=== PATIENT | male | born 1955 | race Caucasian/White ===

== ENCOUNTER 2024-01-11 20:44 | Inpatient (IN) | payer BC, MEDICARE ==
--- NOTE | 2024-01-11 21:52 | XR ---
EXAMINATION TYPE: XR chest 2V DATE OF EXAM: 01/11/2024 COMPARISON: None INDICATION: Chest pain short of breath TECHNIQUE: Frontal and lateral views of the chest are obtained. FINDINGS: The heart size is enlarged. The pulmonary vasculature is prominent. Minimal posterior pleural effusion may be present.. Some minimal infiltrate mainly in the right estiven hilar region. Follow-up is recommended. IMPRESSION: 1. Clinical correlation for mild congestive heart failure versus volume overload. Follow-up is recomm ended.
[2024-01-11 22:05] LABS: Basophils # (A) 0.1 k/uL (0-0.2); Basophils % (A) 1 %; Eosinophils # (A) 0.2 k/uL (0-0.7); Eosinophils % (A) 2 %; HGB 15.1 gm/dL (13.0-17.5); Lymphocytes % (A) 10 %; MCH 26.9 pg (25.0-35.0); MCHC 31.5 g/dL (31.0-37.0); MCV 85.4 fL (80.0-100.0); Mean Platelet Volume 9.4; Monocytes # (A) 0.5 k/uL (0-1.0); Monocytes % (A) 6 %; Neutrophils # (A) 7.9 k/uL (1.3-7.7); Neutrophils % (A) 81 %; Platelet Count 199 k/uL (150-450); RBC 5.62 m/uL (4.30-5.90); RDW 13.9 % (11.5-15.5); WBC 9.8 k/uL (3.8-10.6)
[2024-01-11 22:19] LABS: Partial Thromboplastin Time 22.4 sec (22.0-30.0)
[2024-01-11 22:20] LABS: ALT 114 U/L (4-49); AST 145 U/L (17-59); African American GFR (CKD) >90 (>60 ml/min/1.73 sqM); Albumin 4.5 g/dL (3.5-5.0); Alkaline Phosphatase 58 U/L (38-126); Anion Gap 8 mmol/L; Blood Urea Nitrogen 23 mg/dL (9-20); Calcium 9.1 mg/dL (8.4-10.2); Carbon Dioxide 26 mmol/L (22-30); Chloride 108 mmol/L (98-107); Glucose 124 mg/dL (74-99); Lipase 95 U/L (23-300); Magnesium 2.2 mg/dL (1.6-2.3); Non-African American GFR(CKD) 80 (>60 ml/min/1.73 sqM); Sodium 142 mmol/L (137-145); Total Bilirubin 1.1 mg/dL (0.2-1.3); Total Protein 7.6 g/dL (6.3-8.2)
[2024-01-11 22:28] LABS: NT-Pro-B-Type Natriuretic Pept 4400 pg/mL
[2024-01-11] MEDS ORDERED: NALOXONE 0.4 MG/ML 1 ML VIAL IV PRN (23:38)
--- NOTE | 2024-01-11 23:38 | ED ---
General Adult HPI - General Chief complaint: Recheck/Abnormal Lab/Rx Stated complaint: chest pain,SOB Time Seen by Provider: 01/11/24 20:50 Source: patient, family, EMS Mode of arrival: EMS Limitations: no limitations - History of Present Illness Initial comments: 68-year-old male who presents emergency department with pain and shortness of br eath. Patient admits to having some chest discomfort. Today the patient was watching TV around 6 PM when he had sudden onset of bilateral squeezing arm pain and jaw pain. He took 2 nitro at home that belonged to his . Denies that it helped his chest pain but states it did help his work of breathing. They called EMS after a few hours. EMS did provide him with 4 chewable aspirins and another nitro. Patient arrives and states he is pain-free but does continue to have some shortness of breath. He denies any history of cardiac disease. He denies any medical problems as he does not see a doctor. Denies calf pain or swelling. No history of DVT or PE. No history of congestive heart failure. No other alleviating, precipitating or modifying factors - Related Data Allergies Allergy/AdvReac Type Severity Reaction Status Date / Time No Known Allergies Allergy Verified 01/11/24 20:54 Review of Systems ROS Statement: Those systems with pertinent positive or pertinent negative responses have been documented in the HPI. ROS Other: All systems not noted in ROS Statement are negative. Past Medical History Past Medical History: Asthma, Hypertension Past Surgical History: No Surgical Hx Reported Past Psychological History: No Psychological Hx Reported Smoking Status: Never smoker Past Alcohol Use History: Occasional Past Drug Use History: Marijuana General Exam Limitations: no limitations General appearance: alert Eye exam: Present: normal appearance, PERRL, EOMI. Absent: scleral icterus, conjunctival injection, periorbital swelling ENT exam: Present: normal exam, mucous membranes moist Respiratory exam: Present: rales Cardiovascular Exam: Present: regular rate, tachycardia GI/Abdominal exam: Present: soft, normal bowel sounds. Absent: distended, tenderness, guarding, rebound, rigid Extremities exam: Present: normal inspection, full ROM, normal capillary refill. Absent: tenderness, pedal edema, joint swelling, calf tenderness Course Vital Signs 01/11/24 01/11/24 01/11/24 20:48 22:35 23:35 Temperature 97.9 F Pulse Rate 101 H 86 85 Respiratory 18 18 20 Rate Blood Pressure 200/116 172/100 189/100 O2 Sat by Pulse 95 96 98 Oximetry Medical Decision Making - Medical Decision Making Was pt. sent in by a medical professional or institution ([facility]ANJIT Almonte, CAR SALESPERSON, urgent care, hospital, or longterm...) When possible be specific @ -No Did you speak to anyone other than the patient for history (EMS, parent, family, police, friend...)? What history was obtained from this source @ -I spoke with the patient's significant other for history Did you review nursing and triage notes (agree or disagree)? Why? @ -I reviewed and agree with nursing and triage notes Were old charts reviewed (outside hosp., previous admission, EMS record, old EKG, old radiological studies, urgent care reports/EKG's, longterm records)? Report findings @ -No old charts were reviewed Differential Diagnosis (chest pain, altered mental status, abdominal pain women, abdominal pain men, vaginal bleeding, weakness, fever, dyspnea, syncope, headache, dizziness, GI bleed, back pain, seizure, CVA, palpatations, mental health, musculoskeletal)? @ -Differential Chest Pain: Stable Angina, Unstable Angina, STEMI, NSTEMI Aortic Dissection, Pneumothorax, Musculoskeletal, Esophageal Spasm GERD, Cholecystitis, Pancreatitis, Zoster, this is not meant to be an all-inclusive list. EKG interpreted by me (3pts min.). @ -Yes and demonstrates sinus tachycardia with a rate of 101. OH interval 132. QRS 106. QTc of 409. Q waves in lead II, 3, aVF. No acute ST segment elevations X-rays interpreted by me (1pt min.). @ -Yes and demonstrates pulmonary vascular congestion CT interpreted by me (1pt min.). @ -Yes and demonstrates no signs of PE U/S interpreted by me (1pt. min.). @ -None done What testing was considered but not performed or refused? (CT, X-rays, U/S, labs)? Why? @ -None What meds were considered but not given or refused? Why? @ -None Did you discuss the management of the patient with other professionals (professionals i.e. RANJIT Almonte, CAR SALESPERSON, lab, RT, psych nurse, social security benefits interviewer, marketing development specialist, teacher, chairman and chief executive officer, telephonic nurse case manager)? Give summary @ -I discussed the care with Dr. Mustafa cardiology Was smoking cessation discussed for >3mins.? @ -No Was critical care preformed (if so, how long)? @ -Yes, 35 minutes for diagnosis of NSTEMI. Patient placed on nitro and heparin drip Were there social determinants of health that impacted care today? How? (Homelessness, low income, unemployed, alcoholism, drug addiction, transportation, low edu. Level, literacy, decrease access to med. care, fpc, rehab)? @ -No Was there de-escalation of care discussed even if they declined (Discuss DNR or withdrawal of care, Hospice)? DNR status @ -No What co-morbidities impacted this encounter? (DM, HTN, Smoking, COPD, CAD, Cancer, CVA, ARF, Chemo, Hep., AIDS, mental health diagnosis, sleep apnea, morbid obesity)? @ -None Was patient admitted / discharged? Hospital course, mention meds given and route, prescriptions, significant lab abnormalities, going to OR and other pertinent info. @ -Upon arrival patient seen and evaluated in room 27. Thorough history and physical exam was performed. Patient placed on continuous pulse ox and cardiac monitoring. Twelve-lead EKG is obtained. No acute ST segment elevation however patient does have Q waves in the inferior leads. Patient is markedly hypertensive. Laboratory studies are conducted. Troponin is elevated. D-dimer is elevated therefore CT is performed. No signs of PE however patient appears to be in heart failure from VT. He is initiated on heparin and nitro. He has already received his aspirin. Patient will be given Lasix. Echo ordered for the morning. I spoke with Dr. Frank. Patient has no pain and no ST segment elevation at this time and therefore he will remain n.p.o. for cardiology evaluation in the morning. This information was provided to the patient he was agreeable to admission. He was taken to the floor in stable condition Undiagnosed new problem with uncertain prognosis? @ -No Drug Therapy requiring intensive monitoring for toxicity (Heparin, Nitro, Insulin, Cardizem)? @ -Nitro and heparin Were any procedures done? @ -No Diagnosis/symptom? @ -Acute chest pain, NSTEMI, new onset congestive heart failure Acute, or Chronic, or Acute on Chronic? @ -Acute Uncomplicated (without systemic symptoms) or Complicated (systemic symptoms)? @ -Complicated Side effects of treatment? @ -No Exacerbation, Progression, or Severe Exacerbation? @ -No Poses a threat to life or bodily function? How? (Chest pain, USA, VT, pneumonia, PE, COPD, DKA, ARF, appy, cholecystitis, CVA, Diverticulitis, Homicidal, Suicidal, threat to staff... and all critical care pts) @ -Yes as patient likely had VT leading to heart failure - Lab Data Result diagrams: 01/11/24 21:47 01/11/24 21:47 Lab Results 01/11/24 01/11/24 01/11/24 Range/Units 21:47 21:47 21:47 WBC 9.8 (3.8-10.6) k/uL RBC 5.62 (4.30-5.90) m/uL Hgb 15.1 (13.0-17.5) gm/dL Hct 48.0 (39.0-53.0) % MCV 85.4 (80.0-100.0) fL MCH 26.9 (25.0-35.0) pg MCHC 31.5 (31.0-37.0) g/dL RDW 13.9 (11.5-15.5) % Plt Count 199 (150-450) k/uL MPV 9.4 Neutrophils % 81 % Lymphocytes % 10 % Monocytes % 6 % Eosinophils % 2 % Basophils % 1 % Neutrophils # 7.9 H (1.3-7.7) k/uL Lymphocytes # 1.0 (1.0-4.8) k/uL Monocytes # 0.5 (0-1.0) k/uL Eosinophils # 0.2 (0-0.7) k/uL Basophils # 0.1 (0-0.2) k/uL PT 11.0 (10.0-12.5) sec INR 1.0 (<1.2) APTT 22.4 (22.0-30.0) sec D-Dimer (<0.60) mg/L FEU Sodium 142 (137-145) mmol/L Potassium 4.0 (3.5-5.1) mmol/L Chloride 108 H (98-107) mmol/L Carbon Dioxide 26 (22-30) mmol/L Anion Gap 8 mmol/L BUN 23 H (9-20) mg/dL Creatinine 0.97 (0.66-1.25) mg/dL Est GFR (CKD-EPI)AfAm >90 (>60 ml/min/1.73 sqM) Est GFR (CKD-EPI)NonAf 80 (>60 ml/min/1.73 sqM) Glucose 124 H (74-99) mg/dL Calcium 9.1 (8.4-10.2) mg/dL Magnesium 2.2 (1.6-2.3) mg/dL Total Bilirubin 1.1 (0.2-1.3) mg/dL AST 145 H (17-59) U/L ALT 114 H (4-49) U/L Alkaline Phosphatase 58 (38-126) U/L Troponin I (0.000-0.034) ng/mL NT-Pro-B Natriuret Pep 4400 pg/mL Total Protein 7.6 (6.3-8.2) g/dL Albumin 4.5 (3.5-5.0) g/dL Lipase 95 (23-300) U/L 01/11/24 01/11/24 Range/Units 21:47 21:47 WBC (3.8-10.6) k/uL RBC (4.30-5.90) m/uL Hgb (13.0-17.5) gm/dL Hct (39.0-53.0) % MCV (80.0-100.0) fL MCH (25.0-35.0) pg MCHC (31.0-37.0) g/dL RDW (11.5-15.5) % Plt Count (150-450) k/uL MPV Neutrophils % % Lymphocytes % % Monocytes % % Eosinophils % % Basophils % % Neutrophils # (1.3-7.7) k/uL Lymphocytes # (1.0-4.8) k/uL Monocytes # (0-1.0) k/uL Eosinophils # (0-0.7) k/uL Basophils # (0-0.2) k/uL PT (10.0-12.5) sec INR (<1.2) APTT (22.0-30.0) sec D-Dimer 0.86 H (<0.60) mg/L FEU Sodium (137-145) mmol/L Potassium (3.5-5.1) mmol/L Chloride (98-107) mmol/L Carbon Dioxide (22-30) mmol/L Anion Gap mmol/L BUN (9-20) mg/dL Creatinine (0.66-1.25) mg/dL Est GFR (CKD-EPI)AfAm (>60 ml/min/1.73 sqM) Est GFR (CKD-EPI)NonAf (>60 ml/min/1.73 sqM) Glucose (74-99) mg/dL Calcium (8.4-10.2) mg/dL Magnesium (1.6-2.3) mg/dL Total Bilirubin (0.2-1.3) mg/dL AST (17-59) U/L ALT (4-49) U/L Alkaline Phosphatase (38-126) U/L Troponin I 0.635 H* (0.000-0.034) ng/mL NT-Pro-B Natriuret Pep pg/mL Total Protein (6.3-8.2) g/dL Albumin (3.5-5.0) g/dL Lipase (23-300) U/L Disposition Clinical Impression: Chest pain, NSTEMI (non-ST elevated myocardial infarction), Hypertension Disposition: ADMITTED IP TO THIS HOSP Condition: Serious Is patient prescribed a controlled substance at d/c from ED?: No Time of Disposition: 23:38 Decision to Admit Reason: Admit from EC Decision Date: 01/11/24 Decision Time: 23:38
[2024-01-12] MEDS: HEPARIN SODIUM 1,000 UN/ML (10ML VL) IV ONE (00:24)
[2024-01-12] MEDS: FUROSEMIDE 10 MG/ML 4 ML VIAL IV STA ×2 (00:24→03:21)
[2024-01-12] MEDS: HEPARIN SOD,PORK IN 0.45% NACL 25,000 UNIT in 0.45% NACL 1 250ML.BAG IV SCH (00:25)
[2024-01-12] MEDS: NITROGLYCERIN-D5W PMX 50 MG in DEXTROSE/WATER 1 250ML.BAG IV SCH (00:50)
--- NOTE | 2024-01-12 01:02 | CT ---
EXAM: CT Angiography Chest With Intravenous Contrast CLINICAL HISTORY: ITS.REASON CT Reason: elevated d-dimer, tachycardia, heart failure TECHNIQUE: Axial computed tomographic angiography images of the chest with intravenous contrast. CTDI is 20.3 mGy and DLP is 473 mGy-cm. This CT exam was performed using one or more of the following dose reduction techniques: automated exposure control, adjustment of the mA and/or kV according to patient size, and/or use of iterative reconstruction technique. MIP reconstructed images were created and reviewed. COMPARISON: No relevant prior studies available. FINDINGS: Pulmonary arteries: Unremarkable. No pulmonary embolism. Aorta: No acute findings. No thoracic aortic aneurysm. Lungs: Unremarkable. No mass. No consolidation. Pleural space: Pulmonary-congestion and small bilateral pleural effusions. Cardiomegaly. Findings are concerning for congestive heart failure. No pneumothorax. Heart: Cardiomegaly. Bones/joints: No acute fracture. No dislocation. Soft tissues: Unremarkable. Lymph nodes: Unremarkable. No enlarged lymph nodes. Liver: Hepatic steatosis. IMPRESSION: Pulmonary-congestion and small bilateral pleural effusions. Cardiomegaly. Findings are concerning for congestive heart failure. No acute pulmonary embolism.
[2024-01-12] MEDS: ATORVASTATIN 80 MG TAB PO STA ×2 (03:21→09:46)
[2024-01-12] MEDS: NITROGLYCERIN OINT 1 INCH/GM PACKET TOPICAL SCH (03:21)
[2024-01-12] MEDS: carvediloL 6.25 MG TAB PO STA (03:21)
[2024-01-12] MEDS: VALSARTAN 160 MG TAB PO STA (04:23)
[2024-01-12 05:44] LABS: African American GFR (CKD) >90 (>60 ml/min/1.73 sqM); Anion Gap 8 mmol/L; Blood Urea Nitrogen 19 mg/dL (9-20); Calcium 9.1 mg/dL (8.4-10.2); Carbon Dioxide 27 mmol/L (22-30); Chloride 106 mmol/L (98-107); Glucose 116 mg/dL (74-99); Non-African American GFR(CKD) 80 (>60 ml/min/1.73 sqM); Potassium 3.8 mmol/L (3.5-5.1); Sodium 141 mmol/L (137-145)
[2024-01-12 05:46] LABS: Basophils # (A) 0.1 k/uL (0-0.2); Basophils % (A) 1 %; Eosinophils # (A) 0.2 k/uL (0-0.7); Eosinophils % (A) 1 %; HCT 47.5 % (39.0-53.0); HGB 15.5 gm/dL (13.0-17.5); Lymphocytes # (A) 1.1 k/uL (1.0-4.8); Lymphocytes % (A) 10 %; MCH 27.8 pg (25.0-35.0); MCHC 32.7 g/dL (31.0-37.0); MCV 85.2 fL (80.0-100.0); Monocytes # (A) 0.8 k/uL (0-1.0); Monocytes % (A) 7 %; Neutrophils # (A) 9.2 k/uL (1.3-7.7); Neutrophils % (A) 81 %; Platelet Count 199 k/uL (150-450); RBC 5.57 m/uL (4.30-5.90); RDW 13.9 % (11.5-15.5); WBC 11.5 k/uL (3.8-10.6)
[2024-01-12 05:49] LABS: Partial Thromboplastin Time 32.3 sec (22.0-30.0); Prothrombin Time 11.3 sec (10.0-12.5)
[2024-01-12] MEDS: HEPARIN SODIUM 1,000 UN/ML (10ML VL) IV PRN (05:57)
--- NOTE | 2024-01-12 07:29 | P.HPCAR ---
History of Present Illness This is Dr. Mustafa dictating a consult on this patient The patient was interviewed and examined IMPRESSION / ASSESSMENT: Hypertensive emergency with heart failure symptoms and anginal-like symptoms Acute myocardial injury with rising troponin pattern, symptoms consistent with acute coronary syndrome Congestive heart failure acute Twelve-lead EKG, serial does not show any obvious clear-cut ST segment deviation other than very subtle changes. Q waves noted in V3 and V4 as well as in the inferior leads in the lateral precordial leads, LVH noted PLAN: Continue carvedilol 6.25 mg twice daily Continue valsartan 160 mg twice daily IV Lasix 40 mg daily Baby aspirin, atorvastatin 80 mg p.o. daily Continue IV heparin for now Cardiac catheterization within the next 12 to 24 hours to evaluate epicardial coronary arteries 2D echo and Doppler study to evaluate LV function in the setting of non-Q wave MT and acute congestive heart failure Hemoglobin A1c Lipid panel Follow-up with Dr. Mustafa post discharge HPI Patient presented with fairly sudden onset of discomfort in both armpits and the inner arms as well as discomfort along the sides of the neck. He was diaphoretic according to his and then became very short of breath In the ER he was extremely short of breath and even when trying to walk to the bathroom his found him extremely short of breath His blood pressure was very high upon admission, 222/138 and subsequently greater than 200/100 mmHg He was treated for heart failure with 5 mcg/min of IV nitroglycerin in the ER along with 40 of Lasix IV His blood pressure remained 182/102 mmHg Subsequently I treated him with carvedilol 6.25 mg twice daily, valsartan 160 twice daily, and additional dose of IV Lasix 40 mg, discontinued the low-dose nitroglycerin and put on a Nitropaste instead Aspirin and atorvastatin 80 mg p.o. daily His blood pressure this morning is 156/85 mmHg. He looks very comfortable he has no chest discomfort no shortness of breath no orthopnea. He has been able to lay flat following that treatment He has not seen a doctor ever. He carries no medical diagnosis. From time to time he has experienced sudden onset of shortness of breath but no anginal-like symptoms but thought it was his asthma He denies smoking cigarettes He does consume a few alcoholic beverages over the weekend He denies any recent viral illness in the last 3 months ROS: No fever chills or rigors, no cough, phlegm or expectoration, no nausea, vomiting or diarrhea, no hematuria, dysuria, no musculoskeletal complaints, no strokes or seizures, no skin lesions. EXAMINATION: Blood pressure is above 200/110 mmHg on admission that was treated with 5 mcg of IV nitroglycerin No JVD Normal heart sounds no murmurs Reduced breath sounds bilaterally no rhonchi no crackles Abdomen soft No lower extremity edema No orthopnea, patient is lying flat in bed with much improved blood pressures but still elevated REVIEW OF LABS, ECG & MEDICAL DATA White count 9.8 thousand, hemoglobin 15, D-dimer 0.86 Sodium 142, potassium 4.0 BUN 23 and creatinine 0.97 Elevated glucose Rising troponin pattern of 0.6, 3.3 and 17.7 NT proBNP 4400 Physical Exam Vitals: Vital Signs Temp Pulse Pulse Resp BP BP Pulse Ox 01/12/24 05:59 72 16 156/85 100 01/12/24 03:31 98.4 F 89 19 189/103 98 01/12/24 01:27 96 18 182/102 95 01/12/24 00:30 97.8 F 105 H 18 222/138 96 01/12/24 00:05 98.2 F 85 20 184/124 96 01/11/24 23:35 85 20 189/100 98 01/11/24 22:35 86 18 172/100 96 01/11/24 20:48 97.9 F 101 H 18 200/116 95 Intake and Output 01/11/24 01/12/24 01/12/24 22:59 06:59 14:59 Intake Total 54.833 Output Total 2350 Balance -2295.167 Intake: Intake, IV Titration 54.833 Amount Heparin Sod,Pork in 0.45% 54.833 NaCl 25,000 unit In 0.45 % NaCl 1 250ml.bag @ 10. 498 UNITS/KG/HR 10 mls/hr IV .Q24H [facility] Rx#: [id number] Output: Urine 2350 Other: Voiding Method Urinal # Voids 1 Weight 95.254 kg 89.6 kg Past Medical History Past Medical History: Asthma, Hypertension History of Any Multi-Drug Resistant Organisms: None Reported Past Surgical History: No Surgical Hx Reported Past Anesthesia/Blood Transfusion Reactions: No Reported Reaction Past Psychological History: No Psychological Hx Reported Smoking Status: Never smoker Past Alcohol Use History: Occasional Past Drug Use History: Marijuana Physical Examination Vital Signs Temp Pulse Pulse Resp BP BP Pulse Ox 01/12/24 05:59 72 16 156/85 100 01/12/24 03:31 98.4 F 89 19 189/103 98 01/12/24 01:27 96 18 182/102 95 01/12/24 00:30 97.8 F 105 H 18 222/138 96 01/12/24 00:05 98.2 F 85 20 184/124 96 01/11/24 23:35 85 20 189/100 98 01/11/24 22:35 86 18 172/100 96 01/11/24 20:48 97.9 F 101 H 18 200/116 95 Intake and Output 01/11/24 01/12/24 01/12/24 22:59 06:59 14:59 Intake Total 54.833 Output Total 2350 Balance -2295.167 Intake: Intake, IV Titration 54.833 Amount Heparin Sod,Pork in 0.45% 54.833 NaCl 25,000 unit In 0.45 % NaCl 1 250ml.bag @ 10. 498 UNITS/KG/HR 10 mls/hr IV .Q24H [facility] Rx#: [id number] Output: Urine 2350 Other: Voiding Method Urinal # Voids 1 Weight 95.254 kg 89.6 kg Results 01/12/24 04:31 01/12/24 04:31 Cardiac Enzymes 01/11/24 01/11/24 01/12/24 Range/Units 21:47 21:47 00:15 AST 145 H (17-59) U/L Troponin I 0.635 H* 3.250 H* (0.000-0.034) ng/mL 01/12/24 Range/Units 04:31 AST (17-59) U/L Troponin I 17.700 H* (0.000-0.034) ng/mL Coagulation 01/11/24 01/12/24 Range/Units 21:47 04:31 PT 11.0 11.3 (10.0-12.5) sec APTT 22.4 32.3 H (22.0-30.0) sec CBC 01/11/24 01/12/24 Range/Units 21:47 04:31 WBC 9.8 11.5 H (3.8-10.6) k/uL RBC 5.62 5.57 (4.30-5.90) m/uL Hgb 15.1 15.5 (13.0-17.5) gm/dL Hct 48.0 47.5 (39.0-53.0) % Plt Count 199 199 (150-450) k/uL Comprehensive Metabolic Panel 01/11/24 01/12/24 Range/Units 21:47 04:31 Sodium 142 141 (137-145) mmol/L Potassium 4.0 3.8 (3.5-5.1) mmol/L Chloride 108 H 106 (98-107) mmol/L Carbon Dioxide 26 27 (22-30) mmol/L BUN 23 H 19 (9-20) mg/dL Creatinine 0.97 0.97 (0.66-1.25) mg/dL Glucose 124 H 116 H (74-99) mg/dL Calcium 9.1 9.1 (8.4-10.2) mg/dL AST 145 H (17-59) U/L ALT 114 H (4-49) U/L Alkaline Phosphatase 58 (38-126) U/L Total Protein 7.6 (6.3-8.2) g/dL Albumin 4.5 (3.5-5.0) g/dL Current Medications Generic Name Dose Route Start Last Admin Trade Name Freq PRN Reason Stop Dose Admin Aspirin 81 mg 01/12/24 09:00 Aspirin 81 Mg PO DAILY [facility] Atorvastatin Calcium 80 mg 01/12/24 09:00 Atorvastatin 80 Mg Tab PO DAILY [facility] Carvedilol 6.25 mg 01/12/24 07:30 Carvedilol 6.25 Mg Tab PO BID-W/MEALS [facility] Furosemide 40 mg 01/12/24 09:00 Furosemide 10 Mg/Ml 4 Ml Vial IV Q12HR [facility] Heparin Sodium (Porcine) 0 unit 01/11/24 23:37 01/12/24 05:57 Heparin Sodium 1,000 Un/Ml (10ml Vl) IV 4,000 unit PER PROTOCOL PRN Administration Low PTT Protocol Heparin Sodium/Sodium Chloride 250 mls @ 10 mls/hr 01/11/24 23:45 01/12/24 05:54 25,000 unit/ Sodium Chloride IV 13.49 units/kg/hr .Q24H [facility] 12.85 mls/hr Titration Protocol 10.498 UNITS/KG/HR Naloxone HCl 0.2 mg 01/11/24 23:38 Naloxone 0.4 Mg/Ml 1 Ml Vial IV Q2M PRN Opioid Reversal Nitroglycerin 1 inch 01/12/24 03:15 01/12/24 03:21 Nitroglycerin Oint 1 Inch/Gm Packet TOPICAL 1 inch Q6HR [facility] Administration Valsartan 160 mg 01/12/24 09:00 Valsartan 160 Mg Tab PO BID [facility] Intake and Output 01/11/24 01/12/24 01/12/24 22:59 06:59 14:59 Intake Total 54.833 Output Total 2350 Balance -2295.167 Intake: Intake, IV Titration 54.833 Amount Heparin Sod,Pork in 0.45% 54.833 NaCl 25,000 unit In 0.45 % NaCl 1 250ml.bag @ 10. 498 UNITS/KG/HR 10 mls/hr IV .Q24H [facility] Rx#: [id number] Output: Urine 2350 Other: Voiding Method Urinal # Voids 1 Weight 95.254 kg 89.6 kg 01/12/24 04:31 01/12/24 04:31
[2024-01-12] MEDS ORDERED: FUROSEMIDE 10 MG/ML 4 ML VIAL IV SCH (09:00)
[2024-01-12] MEDS: carvediloL 6.25 MG TAB PO SCH (09:03)
[2024-01-12] MEDS ORDERED: ALPRAZolam 0.5 MG TAB PO PRN (09:19)
[2024-01-12] MEDS ORDERED: NITROGLYCERIN SL TABS 0.4 MG TAB SUBLINGUAL PRN (09:19)
[2024-01-12] MEDS ORDERED: ALPRAZolam 0.25 MG TAB PO PRN (09:19)
[2024-01-12] MEDS: ASPIRIN 325 MG TAB PO STA ×2 (09:36→09:46)
[2024-01-12] MEDS: ATORVASTATIN 80 MG TAB PO SCH (09:37)
[2024-01-12] MEDS ORDERED: fentaNYL (PF) 50 MCG/ML 2 ML AMP ONE (09:56)
[2024-01-12] MEDS ORDERED: HEPARIN SODIUM 1,000 UN/ML (10ML VL) ONE (10:00)
[2024-01-12] MEDS: fentaNYL (PF) 50 MCG/ML 2 ML AMP IVP ONE (10:04)
[2024-01-12] MEDS: MIDAZOLAM 2 MG/2 ML VIAL IVP ONE (10:04)
[2024-01-12] MEDS: LIDOCAINE 1% INJ 10MG/ML (20 ML MDV) SQ ONE ×2 (10:06→10:07)
[2024-01-12] MEDS: VERAPAMIL SYRINGE (5 MG/10 ML) INTRAARTER ONE (10:12)
[2024-01-12] MEDS: HEPARIN SODIUM 1,000 UN/ML (10ML VL) IVP ONE (10:17)
[2024-01-12 10:31] LABS: Chol/HDL Ratio 4.82 Ratio; LDL Cholesterol,Calculated 152.6 mg/dL (0.0-131.0); VLDL Calculation 13.04 mg/dL (5.00-40.00)
[2024-01-12] MEDS: ASPIRIN 81 MG PO SCH (10:35)
[2024-01-12] MEDS: IOPAMIDOL-370 100ML BTL INJ ONE (10:37)
[2024-01-12] MEDS: SODIUM CHLORIDE 0.9% 1,000 ML IV ONE (10:38)
[2024-01-12] MEDS ORDERED: RX INFO: IV CONTRAST WAS GIVEN 1 EACH MISC MISCELLANE PRN (11:03)
[2024-01-12] MEDS: VALSARTAN 160 MG TAB PO SCH (11:09)
[2024-01-12] MEDS: SODIUM CHLORIDE 0.9% 1,000 ML in EMPTY BAG 1 BAG IV SCH (11:14)
--- NOTE | 2024-01-12 11:18 | CC ---
CARDIAC CATHETERIZATION REPORT INDICATIONS: Acute xfn-FD-oaxsgyd elevation WI. PROCEDURE NOTE: After obtaining informed consent, left heart catheterization and coronary angiogram were performed via right radial artery using standard [place] catheters. The patient tolerated the procedure well without any obvious immediate complications. A TR band will be used for hemostasis. The patient received moderate conscious sedation. Total sedation time was 20 minutes. I obtained right radial artery access using Seldinger technique, 6-Ukrainian sheath was placed. Catheters and wires were floated into the ascending aorta under fluoroscopic guidance. The patient received verapamil and heparin per protocol. FINDINGS: 1. Hemodynamics: Left ventricular end-diastolic pressure 18 to 20 mm. There is no significant gradient across the aortic valve. 2. Left Ventriculogram: Left ventriculogram is not performed. 3. Angiographic Data: a.Right Coronary Artery: Right coronary artery is a large dominant vessel that shows an 80% to 90% mid right coronary artery stenosis. Left main coronary artery appears calcified but is free of significant stenosis. Divides into left anterior descending coronary artery and circumflex coronary artery. LAD shows a long segment of narrowing and it is extending in its midportion. Diagonal branch has an 80% to 90% stenosis. Circumflex coronary artery is a nondominant vessel and a large caliber OM branch is totally occluded. Severe three-vessel coronary artery disease as described above. PLAN: I reviewed angiographic data with Dr. Faust who felt that surgical revascularization is the best option for the patient. Consult Dr. Oliveros. I spoke to the patient's who is a nurse and she is going to think about it, talk it out with her and make a decision. MMODL / IJN: [id number] /
--- NOTE | 2024-01-12 14:35 | P.GSCN ---
History of Present Illness Consult date: 01/12/24 Reason for Consult: Multivessel coronary artery disease, and acute non-ST elevated myocardial infarction this admission Requesting physician: Ronnie Oconnor History of present illness: This is a 68-year-old gentleman who does not follow with a primary care provider on an outpatient basis. He has a past medical history significant for asthma and is a lifetime non-smoker. The patient presented to the emergency department here at [facility] on January 11, 2024 with complaints of acute onset of pain to his bilateral upper extremities and to his bilateral armpits, associated with shortness of breath and he became diaphoretic. The patient states that he was sitting on the couch watching TV when the pain came on all of a sudden. He states that he is very active and does the elliptical around 4 ti mes a week for 45 minutes each episode. He denies any recent fever, chills, nausea, vomiting, constipation, diarrhea, hematemesis, hemoptysis, visual disturbances, palpitations, chest pain/pressure, presyncope or syncope. The patient reports that he took 1 one of his 's nitroglycerin without relief and then decided to present to the emergency department for further evaluation and treatment recommendations. A twelve-lead EKG was completed which showed some subtle changes, Q waves noted in V3 and V4 as well as his inferior leads in the lateral precordial leads. Initial laboratory results showed a WBC count of 9.8, hemoglobin 15.1, hematocrit 48.0, platelets 199, PT 11.0, INR 1.0, PTT 2 4.4, D-dimer 0.86, sodium 142, potassium 4.0, chloride 108, BUN 23, creatinine 0.97, glucose 124, calcium 9.1, magnesium 2.2, AST 145, ALT 114, proBNP 4400, and serial troponins were positive and as high as 17.700. Subsequently due to the patient's presenting symptoms and elevated troponins a consult was placed to cardiology. Dr. Oconnor from cardiology assessed the patient and recommended a cardiac catheterization which was completed today. The cardiac catheterization revealed severe three-vessel coronary artery disease with a long segment of narrowing to his LAD extending to its midportion, and 80 to 90% stenosis to his diagonal branch coronary artery, a totally occluded obtuse marginal branch, and an 80 to 90% stenosis to his mid right coronary artery. A transthoracic 2D echocardiogram is pending. Due to the findings on a cardiac catheterization a consult was placed to cardiothoracic surgery for further evaluation and treatment recommendations including myocardial vascularization surgery. Review of Systems A review of systems was completed and was negative except as mentioned in the HPI. Past Medical History Past Medical History: Asthma History of Any Multi-Drug Resistant Organisms: None Reported Past Surgical History: No Surgical Hx Reported Past Anesthesia/Blood Transfusion Reactions: No Reported Reaction Past Psychological History: No Psychological Hx Reported Smoking Status: Never smoker Past Alcohol Use History: Occasional Past Drug Use History: Marijuana - Past Family History Mother Additional Family Medical History / Comment(s): Osteoporosis Father Family Medical History: Coronary Artery Disease (CAD) Medications and Allergies Home Medications Medication Instructions Recorded Confirmed Type No Known Home Medications 01/12/24 01/12/24 History Allergies Allergy/AdvReac Type Severity Reaction Status Date / Time No Known Allergies Allergy Verified 01/12/24 08:48 Surgical - Exam Vital Signs Temp Pulse Resp BP Pulse Ox 97.9 F 101 H 18 200/116 95 01/11/24 20:48 01/11/24 20:48 01/11/24 20:48 01/11/24 20:48 01/11/24 20:48 - General well developed, well nourished, no distress, no pain, obese - Eyes PERRL, normal ocular movement, no pale, no icteric - ENT normal pinna, normal nares, normal mucosa, no hearing loss, no congestion - Neck Neck is supple, no lymphadenopathy. no masses, no bruits, trachea midline, no venous distension - Respiratory Lung sounds essentially clear throughout. Respirations are symmetrical and nonlabored. No wheezes, rhonchi or crackles. - Cardiovascular Regular rhythm and rate. S1 and S2 present, negative for S3, gallop or murmur. No peripheral edema present. - Abdomen Abdomen is soft, nontender and nondistended. Active bowel sounds present all 4 abdominal quadrants. No guarding or rigidity. No organomegaly appreciated. - Genitourinary Deferred - Rectum Deferred - Integumentary Skin is warm and dry. No clubbing or cyanosis is present. no rash, no growths, no abnormal pigmentation - Neurologic No focal deficits. - Musculoskeletal Moves all 4 extremities with equal strength bilateral. - Psychiatric oriented to time, oriented to person, oriented to place, speech is normal, memory intact Results - Labs 01/12/24 04:31 01/12/24 04:31 Abnormal Lab Results - Last 24 Hours (Table) 01/11/24 01/11/24 01/11/24 Range/Units 21:47 21:47 21:47 WBC (3.8-10.6) k/uL Neutrophils # 7.9 H (1.3-7.7) k/uL APTT (22.0-30.0) sec D-Dimer (<0.60) mg/L FEU Chloride 108 H (98-107) mmol/L BUN 23 H (9-20) mg/dL Glucose 124 H (74-99) mg/dL AST 145 H (17-59) U/L ALT 114 H (4-49) U/L Troponin I 0.635 H* (0.000-0.034) ng/mL Cholesterol (0.00-200.00) mg/dL LDL Cholesterol, Calc (0.0-131.0) mg/dL 01/11/24 01/12/24 01/12/24 Range/Units 21:47 00:15 04:31 WBC 11.5 H (3.8-10.6) k/uL Neutrophils # 9.2 H (1.3-7.7) k/uL APTT (22.0-30.0) sec D-Dimer 0.86 H (<0.60) mg/L FEU Chloride (98-107) mmol/L BUN (9-20) mg/dL Glucose (74-99) mg/dL AST (17-59) U/L ALT (4-49) U/L Troponin I 3.250 H* (0.000-0.034) ng/mL Cholesterol (0.00-200.00) mg/dL LDL Cholesterol, Calc (0.0-131.0) mg/dL 01/12/24 01/12/24 01/12/24 Range/Units 04:31 04:31 04:31 WBC (3.8-10.6) k/uL Neutrophils # (1.3-7.7) k/uL APTT 32.3 H (22.0-30.0) sec D-Dimer (<0.60) mg/L FEU Chloride (98-107) mmol/L BUN (9-20) mg/dL Glucose 116 H (74-99) mg/dL AST (17-59) U/L ALT (4-49) U/L Troponin I 17.700 H* (0.000-0.034) ng/mL Cholesterol (0.00-200.00) mg/dL LDL Cholesterol, Calc (0.0-131.0) mg/dL 01/12/24 Range/Units 04:31 WBC (3.8-10.6) k/uL Neutrophils # (1.3-7.7) k/uL APTT (22.0-30.0) sec D-Dimer (<0.60) mg/L FEU Chloride (98-107) mmol/L BUN (9-20) mg/dL Glucose (74-99) mg/dL AST (17-59) U/L ALT (4-49) U/L Troponin I (0.000-0.034) ng/mL Cholesterol 209.00 H (0.00-200.00) mg/dL LDL Cholesterol, Calc 152.6 H (0.0-131.0) mg/dL Diabetes panel 01/11/24 01/12/24 01/12/24 Range/Units 21:47 04:31 04:31 Sodium 142 141 (137-145) mmol/L Potassium 4.0 3.8 (3.5-5.1) mmol/L Chloride 108 H 106 (98-107) mmol/L Carbon Dioxide 26 27 (22-30) mmol/L BUN 23 H 19 (9-20) mg/dL Creatinine 0.97 0.97 (0.66-1.25) mg/dL Glucose 124 H 116 H (74-99) mg/dL Hemoglobin A1c 5.8 (<=6.0) % Calcium 9.1 9.1 (8.4-10.2) mg/dL AST 145 H (17-59) U/L ALT 114 H (4-49) U/L Alkaline Phosphatase 58 (38-126) U/L Total Protein 7.6 (6.3-8.2) g/dL Albumin 4.5 (3.5-5.0) g/dL Triglycerides (0.00-149.00) mg/dL HDL Cholesterol (40.00-60.00) mg/dL 01/12/24 Range/Units 04:31 Sodium (137-145) mmol/L Potassium (3.5-5.1) mmol/L Chloride (98-107) mmol/L Carbon Dioxide (22-30) mmol/L BUN (9-20) mg/dL Creatinine (0.66-1.25) mg/dL Glucose (74-99) mg/dL Hemoglobin A1c (<=6.0) % Calcium (8.4-10.2) mg/dL AST (17-59) U/L ALT (4-49) U/L Alkaline Phosphatase (38-126) U/L Total Protein (6.3-8.2) g/dL Albumin (3.5-5.0) g/dL Triglycerides 65.20 (0.00-149.00) mg/dL HDL Cholesterol 43.40 (40.00-60.00) mg/dL Calcium panel 01/11/24 01/12/24 Range/Units 21:47 04:31 Calcium 9.1 9.1 (8.4-10.2) mg/dL Albumin 4.5 (3.5-5.0) g/dL Pituitary panel 01/11/24 01/12/24 Range/Units 21:47 04:31 Sodium 142 141 (137-145) mmol/L Potassium 4.0 3.8 (3.5-5.1) mmol/L Chloride 108 H 106 (98-107) mmol/L Carbon Dioxide 26 27 (22-30) mmol/L BUN 23 H 19 (9-20) mg/dL Creatinine 0.97 0.97 (0.66-1.25) mg/dL Glucose 124 H 116 H (74-99) mg/dL Calcium 9.1 9.1 (8.4-10.2) mg/dL Adrenal panel 01/11/24 01/12/24 Range/Units 21:47 04:31 Sodium 142 141 (137-145) mmol/L Potassium 4.0 3.8 (3.5-5.1) mmol/L Chloride 108 H 106 (98-107) mmol/L Carbon Dioxide 26 27 (22-30) mmol/L BUN 23 H 19 (9-20) mg/dL Creatinine 0.97 0.97 (0.66-1.25) mg/dL Glucose 124 H 116 H (74-99) mg/dL Calcium 9.1 9.1 (8.4-10.2) mg/dL Total Bilirubin 1.1 (0.2-1.3) mg/dL AST 145 H (17-59) U/L ALT 114 H (4-49) U/L Alkaline Phosphatase 58 (38-126) U/L Total Protein 7.6 (6.3-8.2) g/dL Albumin 4.5 (3.5-5.0) g/dL - Imaging CT scan - chest: report reviewed Additional studies: Cardiac catheterization films were reviewed by Dr. Julia Correa. Assessment and Plan Assessment: Multivessel coronary artery disease Non-ST elevated myocardial infarction this admission Congestive heart failure Hypertension Hyperlipidemia, cholesterol 209, LDL 152.6 History of asthma Lifetime non-smoker Family history of coronary artery disease Plan: The patient was seen and examined in conjunction with Dr. Julia Correa from cardiothoracic surgery. The patient has several family members including his present at his bedside. The patient's chart and diagnostics were reviewed. Dr. Correa discussed with the patient and his family present at his bedside the findings on the cardiac catheterization, treatment options were discussed including myocardial vascularization surgery. The usual perioperative course of open-heart surgery was discussed in detail with the patient, risks and benefits were reviewed, all questions were answered. Preoperative teaching and preoperative testing has been initiated. A clinical frailty score has been completed, clinical frailty score shows 1 which indicates very fit, mild/frailty. Once the patient is able to ambulate a 5 m walk test will be completed with the patient. At this time the patient and his family members are discussing requesting a transfer to [facility] for undergoing myocardial vascularization surgery. The patient's has discussed this with internal medicine. Medical management and other comorbidities per primary care and cardiology service. Continue to maximize medical management with aspirin, statin and beta-dima. More recommendations to follow based on patient's clinical course, and a has his preoperative testing has been completed and reviewed. Once his preoperative testing has been completed and obtained an STS risk or will be calculated and discussed with the patient. Thank you Dr. Oconnor for this consult and we look forward to working with you in the care of this patient. I have personally seen and examined the patient, performed the documentation and the assessment and plan as written. Number of minutes spent on the visit: 30. JOSE RAFAEL AntunezC
--- NOTE | 2024-01-12 15:39 | US ---
EXAMINATION TYPE: US vein mapping BILAT DATE OF EXAM: 01/12/2024 2:32 PM COMPARISON: NONE CLINICAL INDICATION: Male, 68 years old with history of PreOp Cardiac Surgery; SIDE PERFORMED: TECHNIQUE: Lower extremity saphenous vein is examined and measured utilizing real time linear array sonography. Patient History: Smoker: N/A Heart Disease: Yes Previous DVT: No Vascular Surgery: No Discoloration: Yes Hypertension: No Diabetes: N/A Paralysis: No Varicosities: No Edema: No DUPLEX FINDINGS: Greater Saphenous: Color flow seen Lesser Saphenous: Color flow seen Measurements in mm: Right Greater Saphenous: Groin: 4.0 x 3.6 mm High Thigh: 3.6 x 2.8 mm Mid Thigh: 4.0 x 3.2 mm Above Knee: 2.5 x 2.5 mm Knee: 2.9 x 2.9 mm Below Knee: 2.5 x 2.2 mm Mid Calf: 2.8 x 2.7 mm At Ankle: 2.3 x 2.4 mm Left Greater Saphenous: Groin: 6.2 x 5.1 mm High Thigh: 4.4 x 3.9 mm Mid Thigh: 4.3 x 3.8 mm Above Knee: 3.8 x 3.5 mm Knee: 4.1 x 3.9 mm Below Knee: 4.2 x 4.0 mm Mid Calf: 3.3 x 2.8 mm At Ankle: 4.0 x 2.9 mm IMPRESSION: 1. Bilateral GSV measurements listed above. 2. Performing surgeon to determine viability as conduit.
--- NOTE | 2024-01-12 15:41 | US ---
EXAMINATION TYPE: Pre-Operative Non-Invasive Evaluation of the hand for Potential Radial Artery Sanjiv , Measurements only DATE OF EXAM: 01/12/2024 2:32 PM CLINICAL INDICATION: Male, 68 years old with history of Pre-Op Cardiac Surgery; PreOP SIDE PERFORMED: Left TECHNIQUE: Radial artery is measured utilizing real time linear array sonography. Dominant hand: Right Duplex Findings: Radial Artery: Color flow seen Measurements in mm, transverse view: Left Radial: Proximal: 3.5 x 3.3 mm Mid: 3.3 x 3.1 mm Distal: 3.5 x 3.0 mm Unable to obtain left radial origin picture due to IV IMPRESSION: 1. Left Radial artery measurements listed above. 2. Performing surgeon to determine viability as conduit.
--- NOTE | 2024-01-12 15:43 | US ---
EXAMINATION TYPE: US carotid duplex BILAT DATE OF EXAM: 01/12/2024 COMPARISON: NONE CLINICAL INDICATION: Male, 68 years old with history of Pre-Op Cardiac Surgery; No HTN. TECHNIQUE: Carotid duplex ultrasound examination. Indirect Doppler criteria was utilized. FINDINGS: EXAM MEASUREMENTS: RIGHT: Peak Systolic Velocity (PSV) cm/sec ----- Right CCA: 71.1 ----- Right ICA: 98.2 ----- Right ECA: 159.5 ICA/CCA ratio: 1.4 RIGHT: End Diastole cm/sec ----- Right CCA: 6.3 ----- Right ICA: 15.4 ----- Right ECA: 11.6 LEFT: Peak Systolic Velocity (PSV) cm/sec ----- Left CCA: 80.1 ----- Left ICA: 73.6 ----- Left ECA: 95.6 ICA/CCA ratio: 0.9 LEFT: End Diastole cm/sec ----- Left CCA: 10.2 ----- Left ICA: 12.8 ----- Left ECA: 15.4 VERTEBRALS (direction of flow): Right Vertebral: Antegrade Left Vertebral: Antegrade Rhythm: Normal [employer] SAL[employer] ASSISTANT NOTES: Bilateral wall thickening. Plaque seen in bilateral bulbs extending into proximal ICA. Elevated right ECA velocity. IMPRESSION: Moderate atheromatous plaque impression to the bilateral carotid bifurcations. No significant flow-li miting stenosis of the internal carotid arteries is evident. There may be some moderate narrowing of the right external carotid artery. Criteria for Assigning % of Stenosis / Diameter reduction (Estimation based on the indirect measurements of the internal carotid artery velocities (ICA PSV). 1. Normal (no stenosis)=ICA PSV < 125 cm/s: ratio < 2.0: ICA EDV<40 cm/s. 2. Less than 50% stenosis=ICA PSV < 125 cm/s: ratio < 2.0: ICA EDV<40 cm/s. 3. 50 to 69% stenosis=ICA PSV of 125 to 230 cm/s: ration 2.0 ? 4.0: ICA EDV 40-100 cm/s. 4. Greater than 70% stenosis to near occlusion= ICA PSV > 230 cm/s: ratio > 4.0: ICA EDV > 100 cm/s. 5. Near occlusion= ICA PSV velocities may be low or undetectable: variable ratio and ICA EDV. 6. Total occlusion=unable to detect flow.
--- NOTE | 2024-01-12 16:32 | US ---
EXAMINATION TYPE: US arterial LE single level DATE OF EXAM: 01/12/2024 2:41 PM CLINICAL INDICATION: Male, 68 years old with history of Ankle Brachial Index (BRIANNA) ; Pre op Cardiac S urgery History of: Smoker: no Hypertension: yes Diabetic: no Hyperlipidemia: no TIA/CVA: no Previous Vascular Surgery: no [place]: yes Vascular Ulcers: no Claudication: no Gangrene: no Doppler Waveforms: Right: Monophasic Left: Biphasic Right Brachial Pressure: deferred due to heart cath today Left Brachial Pressure: 156 Ankle-Brachial Indices: Right: 0.90 Left: 1.02 (Vessel hardening > 1.4; Normal 0.9 - 1.4, Moderate 0.7 - 0.9, Severe 0.5-0.7) IMPRESSION: 1. Findings consistent with mild peripheral artery disease of the right lower extremity. 2. No significant peripheral artery disease of the left lower extremity
[2024-01-12] MEDS: HEPARIN SODIUM,PORCINE 5,000 UNIT/ML 1 ML VIAL SQ SCH (16:33)
[2024-01-12] MEDS: MUPIROCIN 2% OINT 22 GM TUBE NASAL SCH (21:07)
[2024-01-12] MEDS: FUROSEMIDE 10 MG/ML 4 ML VIAL IV SCH (23:31)
--- NOTE | 2024-01-13 01:08 | P.HPIM ---
History of Present Illness H&P Date: 01/12/24 Chief Complaint: Chest discomfort Patient is a 68-year-old male with a past medical history of hypertension, asthma, history of marijuana use presents to ER with complaints of chest pain and shortness of breath. Chest discomfort is mainly in the left retrosternal. Patient was watching TV around 6 PM when he had a sudden onset of bilateral squeezing arm pain and jaw pain along with chest discomfort.. He did take 2 nitro's at home that belonged to his . Did help with breathing but not with the chest pain. EMS was called after few hours. EMS did give him 4 chewable aspirin and send as a nitro. By the time he came to ER he was chest pain-free but continues to have shortness of breath. Denied any cough or sputum production. No recent illnesses. No prior history of cardiac disease. No leg swelling. No calf tenderness or pain. No history of PE/DVT. Denies any recent travel. Chest x-ray showed clinical correlation for mild CHF versus volume overload. CTA chest was done which showed pulmonary congestion and small bilateral pleural effusions. Cardiomegaly. Findings are concerning for CHF. No PE. EKG showed sinus tachycardia with possible left atrial enlargement.. No clear acute ST segment deviation. Q waves noted in lead V3 and V4 as well as inferior leads. Patient's blood pressure was 200/116 and pulse 101 respiration 18 and pulse ox 95% on room air on admission. Laboratory data showed WBC 9.8 hemoglobin 15.1 and platelets 199 D-dimer 0.86 Sodium 142 potassium 4.0 chloride 108 bicarb is 26 BUN 23 and creatinine 0.97 and blood sugar is 124 AST 145 ALT 114 alk phos 58, troponin 0.635 and 3.2 x 0 and 17.7 proBNP 4400 Lipase 95 Review of Systems Constitutional: Patient denies any fever or chills . No generalized weakness or weight loss. Abdomen: Patient denied nausea vomiting and diarrhea and abdominal pain. Cardiovascular: Patient denies any chest pain or short of breath no palpitations. Respiratory: patient denied any cough or sputum production. No shortness of breath Neurologic: Patient denied any numbness or tingling. no headache. Musculoskeletal: Patient denies any complaints of joint swelling or deformity. Skin: Negative Psychiatric: Negative Endocrine: No heat or cold intolerance. No recent weight gain. Genitourinary: No dysuria or hematuria. All other 14 point ROS negative except the above Past Medical History Past Medical History: Asthma, Hypertension History of Any Multi-Drug Resistant Organisms: None Reported Past Surgical History: No Surgical Hx Reported Past Anesthesia/Blood Transfusion Reactions: No Reported Reaction Past Psychological History: No Psychological Hx Reported Smoking Status: Never smoker Past Alcohol Use History: Occasional Past Drug Use History: Marijuana - Past Family History Mother Additional Family Medical History / Comment(s): Osteoporosis Father Family Medical History: Coronary Artery Disease (CAD) Medications and Allergies Home Medications Medication Instructions Recorded Confirmed Type No Known Home Medications 01/12/24 01/12/24 History Allergies Allergy/AdvReac Type Severity Reaction Status Date / Time No Known Allergies Allergy Verified 01/12/24 08:48 Physical Exam Vitals: Vital Signs Temp Pulse Pulse Pulse Resp BP BP 01/12/24 08:00 97.8 F 68 18 153/74 01/12/24 05:59 72 16 156/85 01/12/24 03:31 98.4 F 89 19 189/103 01/12/24 01:27 96 18 182/102 01/12/24 00:30 97.8 F 105 H 18 222/138 01/12/24 00:05 98.2 F 85 20 184/124 01/11/24 23:35 85 20 189/100 01/11/24 22:35 86 18 172/100 01/11/24 20:48 97.9 F 101 H 18 200/116 Pulse Ox 01/12/24 08:00 97 01/12/24 05:59 100 01/12/24 03:31 98 01/12/24 01:27 95 01/12/24 00:30 96 01/12/24 00:05 96 01/11/24 23:35 98 01/11/24 22:35 96 01/11/24 20:48 95 Intake and Output 01/11/24 01/12/24 01/12/24 22:59 06:59 14:59 Intake Total 54.833 174.687 Output Total 2350 Balance -2295.167 174.687 Intake: IV 125 Intake, IV Titration 54.833 49.687 Amount Heparin Sod,Pork in 0.45% 54.833 49.687 NaCl 25,000 unit In 0.45 % NaCl 1 250ml.bag @ 10. 498 UNITS/KG/HR 10 mls/hr IV .Q24H [facility] Rx#: [id number] Output: Urine 2350 Other: Voiding Method Urinal Urinal # Voids 1 Weight 95.254 kg 89.6 kg PHYSICAL EXAMINATION: Patient is lying in the bed comfortably, no acute distress, awake alert and o riented.. HEENT: Normocephalic. Neck is supple. Pupils reactive. Nostrils clear. Oral cavity is moist. Neck reveals no JVD, carotid bruits, or thyromegaly. CHEST EXAMINATION: Trachea is central. Symmetrical expansion. Lung kaye clear to auscultation and percussion. CARDIAC: Normal S1, S2 with no gallops. No murmurs ABDOMEN: Soft. Bowel sounds normal. No organomegaly. No abdominal bruits. Extremities: reveal no edema. No clubbing or cyanosis Neurologically awake, alert, oriented x3 with well-coordinated movements. No focal deficits noted Skin: No rash or skin lesions. Psychiatric: Coperative. Nonsuicidal Musculoskeletal: No joint swelling or deformity. Normal range of motion. Results CBC & Chem 7: 01/13/24 06:25 01/13/24 06:25 Labs: Abnormal Lab Results - Last 24 Hours (Table) 01/11/24 01/11/24 01/11/24 Range/Units 21:47 21:47 21:47 WBC (3.8-10.6) k/uL Neutrophils # 7.9 H (1.3-7.7) k/uL APTT (22.0-30.0) sec D-Dimer (<0.60) mg/L FEU Chloride 108 H (98-107) mmol/L BUN 23 H (9-20) mg/dL Glucose 124 H (74-99) mg/dL AST 145 H (17-59) U/L ALT 114 H (4-49) U/L Troponin I 0.635 H* (0.000-0.034) ng/mL Cholesterol (0.00-200.00) mg/dL LDL Cholesterol, Calc (0.0-131.0) mg/dL 01/11/24 01/12/24 01/12/24 Range/Units 21:47 00:15 04:31 WBC 11.5 H (3.8-10.6) k/uL Neutrophils # 9.2 H (1.3-7.7) k/uL APTT (22.0-30.0) sec D-Dimer 0.86 H (<0.60) mg/L FEU Chloride (98-107) mmol/L BUN (9-20) mg/dL Glucose (74-99) mg/dL AST (17-59) U/L ALT (4-49) U/L Troponin I 3.250 H* (0.000-0.034) ng/mL Cholesterol (0.00-200.00) mg/dL LDL Cholesterol, Calc (0.0-131.0) mg/dL 01/12/24 01/12/24 01/12/24 Range/Units 04:31 04:31 04:31 WBC (3.8-10.6) k/uL Neutrophils # (1.3-7.7) k/uL APTT 32.3 H (22.0-30.0) sec D-Dimer (<0.60) mg/L FEU Chloride (98-107) mmol/L BUN (9-20) mg/dL Glucose 116 H (74-99) mg/dL AST (17-59) U/L ALT (4-49) U/L Troponin I 17.700 H* (0.000-0.034) ng/mL Cholesterol (0.00-200.00) mg/dL LDL Cholesterol, Calc (0.0-131.0) mg/dL 01/12/24 Range/Units 04:31 WBC (3.8-10.6) k/uL Neutrophils # (1.3-7.7) k/uL APTT (22.0-30.0) sec D-Dimer (<0.60) mg/L FEU Chloride (98-107) mmol/L BUN (9-20) mg/dL Glucose (74-99) mg/dL AST (17-59) U/L ALT (4-49) U/L Troponin I (0.000-0.034) ng/mL Cholesterol 209.00 H (0.00-200.00) mg/dL LDL Cholesterol, Calc 152.6 H (0.0-131.0) mg/dL Thrombosis Risk Factor Assmnt - DVT/VTE Prophylaxis DVT/VTE Prophylaxis: Pharmacologic Prophylaxis ordered - Choose All That Apply Any of the Below Risk Factors Present?: Yes Each Factor Represents 1 point: Obesity (BMI >25) Each Risk Factor Represents 2 Points: Age 61-74 years Thrombosis Risk Factor Assessment Total Risk Factor Score: 3 Thrombosis Risk Factor Assessment Level: Moderate Risk Assessment and Plan Assessment: Acute non-ST elevated [place]. Patient presented with chest discomfort and squeezing arm pain jaw pain. Patient is s/p cardiac catheterization showed three-vessel significant coronary artery disease. Acute CHF. Ejection fraction not known Hypertensive emergency with elevated troponin level Mild transaminitis Hyperlipidemia Hypertension currently not on any medications at home. Asthma. Not in exacerbation. GI and DVT prophylaxis Plan: Patient will be continued on telemonitoring. Patient was given IV nitroglycerin in the ER and also given a dose of IV Lasix 40 mg x 1 Patient was started on Coreg and valsartan and Nitropaste. Blood pressure is improving. Patient was taken to cardiac catheterization. 2D echocardiogram was ordered. Cardiac catheterization showed right coronary artery is a large dominant vessel that shows 80 to 90% mid right coronary artery stenosis. Left main coronary artery appears to be calcified but free of significant stenosis. LAD shows long segment of narrowing and it is extending in its midportion. Diagonal branch has an 80% to 90% stenosis. Circumflex artery is a nondominant vessel and a large caliber OM branch is also totally occluded. Severe three-vessel coronary disease. Patient was referred to cardiothoracic surgery for revascularization and Dr. Oliveros was consulted. Patient's family would like him to be transferred to [facility] for further surgical intervention. Transfer team has been contacted and was was told that they have a very long wait list and could not accept the patient's transfer. Cardiology and CT surgery is on board. Continue to follow closely. Time with Patient: Greater than 30
[2024-01-13 03:53] LABS: Appearance,Urine Clear (Clear); Bilirubin,Urine Negative (Negative); Blood,Urine Negative (Negative); Color,Urine Yellow; Glucose,Urine (UA) Negative (Negative); Ketones,Urine Negative (Negative); Leukocyte Esterase,Urine Negative (Negative); Nitrite,Urine Negative (Negative); PH, Urine 5.5 (5.0-8.0); Protein,Urine Trace (Negative); Urobilinogen,Urine <2.0 mg/dL (<2.0)
[2024-01-13 04:27] LABS: Specific Gravity,Urine 1.047 (1.001-1.035)
[2024-01-13] MEDS ORDERED: HEPARIN SODIUM,PORCINE 10,000 UNIT in SODIUM CHLORIDE 0.9% 1,000 ML IRRIGATION PRN (07:00)
[2024-01-13] MEDS ORDERED: HEPARIN SODIUM,PORCINE (1 ML) 2,500 UNIT in SODIUM CHLORIDE 0.9% 250 ML IRRIGATION PRN (07:00)
[2024-01-13 07:40] LABS: Basophils % (A) 0 %; Eosinophils # (A) 0.3 k/uL (0-0.7); Eosinophils % (A) 3 %; HCT 44.9 % (39.0-53.0); HGB 14.1 gm/dL (13.0-17.5); Lymphocytes # (A) 1.3 k/uL (1.0-4.8); Lymphocytes % (A) 12 %; MCH 27.3 pg (25.0-35.0); MCHC 31.4 g/dL (31.0-37.0); Mean Platelet Volume 9.5; Monocytes # (A) 0.8 k/uL (0-1.0); Monocytes % (A) 7 %; Neutrophils % (A) 76 %; Platelet Count 179 k/uL (150-450); RBC 5.17 m/uL (4.30-5.90); RDW 14.2 % (11.5-15.5); WBC 10.6 k/uL (3.8-10.6)
[2024-01-13 07:50] LABS: African American GFR (CKD) 87 (>60 ml/min/1.73 sqM); Anion Gap 4 mmol/L; Blood Urea Nitrogen 25 mg/dL (9-20); Calcium 8.7 mg/dL (8.4-10.2); Carbon Dioxide 29 mmol/L (22-30); Chloride 106 mmol/L (98-107); Glucose 102 mg/dL (74-99); Non-African American GFR(CKD) 75 (>60 ml/min/1.73 sqM); Potassium 3.8 mmol/L (3.5-5.1); Sodium 139 mmol/L (137-145)
--- NOTE | 2024-01-13 08:11 | P.PN ---
Subjective Progress Note Date: 01/13/24 Principal diagnosis: Multivessel coronary artery disease, and acute non-ST elevated myocardial infarction this admission. Past medical history significant asthma and is a lifetime non-smoker. The patient was seen and examined in follow-up today January 13, 2024 at his bedside on the third floor cardiac stepdown unit. Patient is currently sitting up to the bedside edge, eating his breakfast, is awake, alert, oriented x 3 and is in no acute apparent distress. The patient underwent a heart catheterization yesterday January 12, 2024 which revealed triple-vessel coronary artery disease. A consult was placed to cardiothoracic surgery for further evaluation and treatment recommendations including myocardial revascularization surgery. Preoperative testing and preoperative teaching was initiated, although the patient is requesting to be transferred to [facility] for his myocardial vascularization surgery. The family of the patient is working on this process. The patient denies any complaints of chest pain, arm pain, nausea, or shortness of breath. The patient reports he has been up ambulating in the hallway several times this morning and tolerating well. Laboratory results reviewed. Heparin drip remains infusing per protocol. Objective - Vital Signs Vital signs: Vital Signs Temp 97.7 F 01/13/24 03:45 Pulse 66 01/13/24 03:45 Resp 18 01/13/24 03:45 BP 168/87 01/13/24 03:45 Pulse Ox 99 01/13/24 03:45 FiO2 Intake & Output 01/12/24 01/13/24 01/13/24 18:59 06:59 18:59 Intake Total 174.687 Output Total 900 400 Balance -725.313 -400 Weight 90.3 kg Intake: IV 125 Intake, IV Titration 49.687 Amount Heparin Sod,Pork in 0.45% 49.687 NaCl 25,000 unit In 0.45 % NaCl 1 250ml.bag @ 10. 498 UNITS/KG/HR 10 mls/hr IV .Q24H PANCHITO Rx#: [id number] Output: Urine 900 400 Other: Voiding Method Urinal Urinal # Voids 0 - Exam CONSTITUTIONAL: Sitting up to the bedside edge on the cardiac stepdown unit, appears comfortable, cooperative, no apparent acute distress. HEENT: Neck is supple, no JVD, no lymphadenopathy. RESPIRATORY: Lungs sounds essentially clear throughou. Respirations are symmetrical and nonlabored. Currently on 2 L nasal cannula with oxygen saturations 99%. Able to achieve 1500 mL on his incentive spirometry. Strong cough. CARDIOVASCULAR: Regular rhythm and rate. S1 and S2 present, negative for S3, gallop or murmur. Palpable peripheral pulses bilaterally. GASTROINTESTINAL: Abdomen soft, nontender, nondistended. Active bowel sounds present 4 quadrants. Tolerating diet. Passing flatus. No guarding or rigidity. GENITOURINARY: Continues to void. INTEGUMENTARY: Skin is warm and dry with no evidence of clubbing or cyanosis. NEUROLOGIC: Cranial nerves II through XII intact. No focal deficits. MUSKULOSKELETAL: Able to move all extremities, strength equal bilaterally. PSYCHIATRIC: Alert and oriented to person place and time, appropriate affect, intact judgment and insight. - Allied health notes Allied health notes reviewed: nursing - Labs CBC & Chem 7: 01/13/24 06:25 01/13/24 06:25 Labs: Abnormal Lab Results - Last 24 Hours (Table) 01/12/24 01/13/24 01/13/24 Range/Units 04:31 03:15 06:25 Neutrophils # 8.0 H (1.3-7.7) k/uL BUN (9-20) mg/dL Glucose (74-99) mg/dL Cholesterol 209.00 H (0.00-200.00) mg/dL LDL Cholesterol, Calc 152.6 H (0.0-131.0) mg/dL Ur Specific [place] 1.047 H (1.001-1.035) Urine Protein Trace H (Negative) 01/13/24 Range/Units 06:25 Neutrophils # (1.3-7.7) k/uL BUN 25 H (9-20) mg/dL Glucose 102 H (74-99) mg/dL Cholesterol (0.00-200.00) mg/dL LDL Cholesterol, Calc (0.0-131.0) mg/dL Ur Specific [place] (1.001-1.035) Urine Protein (Negative) - Imaging and Cardiology Chest x-ray: report reviewed, image reviewed Assessment and Plan Assessment: Multivessel coronary artery disease Non-ST elevated myocardial infarction this admission Congestive heart failure Hypertension Hyperlipidemia, cholesterol 209, LDL 152.6 History of asthma Lifetime non-smoker Family history of coronary artery disease Plan: Preoperative teaching and preoperative testing remains in progress Awaiting patient and family's decision regarding myocardial vascularization surgery. Encourage use of incentive spirometry 10 times every hour while awake. Heparin drip management per cardiology recommendations. Medical management other comorbidities per primary care service and cardiology. More recommendations to follow based on patient's clinical course. Time with Patient: Greater than 30
[2024-01-13] MEDS: ASPIRIN 81 MG PO SCH (08:15)
[2024-01-13] MEDS: FUROSEMIDE 40 MG TAB PO SCH (08:24)
--- NOTE | 2024-01-13 09:09 | CA ---
Transthoracic Echo Report Name: Abel Gambino Age: 68 Gender: M : 1955 Exam Date: 01/12/2024 14:52 Exam Location: [facility] Ht (in): 69 Wt (lb): 210 Ordering Physician: Yvonne Randhawa DO Attending/Referring Phys: [id number], Edis Crisis Manager Dominique Mai RDCS Procedure CPT: Indications: heart failure, nstemi Cardiac Hx: Technical Quality: Technically difficult study Contrast 1: Definity Total Dose (mL): 2 Contrast 2: Total Dose (mL): MEASUREMENTS (Male / Female) Normal Values 2D ECHO LV Diastolic Diameter PLAX 4.4 cm 4.2 - 5.9 / 3.9 - 5.3 cm LV Systolic Diameter PLAX 3.1 cm IVS Diastolic Thickness 2.0 cm 0.6 - 1.0 / 0.6 - 0.9 cm LVPW Diastolic Thickness 2.0 cm 0.6 - 1.0 / 0.6 - 0.9 cm LV Relative Wall Thickness 0.9 RV Internal Dim ED PLAX 2.7 cm LV Diastolic Volume MOD BP 176.7 cm??? 67 - 155 / 56 - 104 cm??? LV Systolic Volume MOD BP 109.5 cm??? 22 - 58 / 19 - 49 cm??? LV Ejection Fraction MOD BP 38.0 % >= 55 % LV Cardiac Index MOD BP 2032.0 cm???/min???m??? LV Diastolic Volume MOD 4C 199.3 cm??? LV Systolic Volume MOD 4C 133.5 cm??? LV Ejection Fraction MOD 4C 33.0 % LV Cardiac Index MOD 4C 1992.8 cm???/min???m??? LV Diastolic Length 4C 9.8 cm LV Systolic Length 4C 8.5 cm LV Diastolic Volume MOD 2C 155.2 cm??? LV Systolic Volume MOD 2C 87.3 cm??? LV Ejection Fraction MOD 2C 43.8 % LV Cardiac Index MOD 2C 2056.1 cm???/min???m??? LV Diastolic Length 2C 9.9 cm LV Systolic Length 2C 8.8 cm LA Volume 106.0 cm??? 18 - 58 / 22 - 52 cm??? LA Volume Index 48.6 cm???/m??? 16 - 28 cm???/m??? M-MODE LV Diastolic Diameter MM 5.9 cm 4.2 - 5.9 / 3.9 - 5.3 cm LV Systolic Diameter MM 4.6 cm LV Cardiac Index MM Teich 2328.3 cm???/min???m??? IVS Diastolic Thickness MM 1.3 cm 0.6 - 1.0 / 0.6 - 0.9 cm LVPW Diastolic Thickness MM 1.7 cm 0.6 - 1.0 / 0.6 - 0.9 cm LV Relative Wall Thickness MM 0.5 0.24 - 0.42 / 0.22 - 0.42 LV Mass Index MM 185.7 g/m??? 49 - 115 / 43 - 95 g/m??? Aortic Root Diameter MM 3.4 cm LA Systolic Diameter MM 5.0 cm LA Ao Ratio MM 1.5 AV Cusp Separation MM 2.0 cm DOPPLER AV Peak Velocity 146.0 cm/s AV Peak Gradient 8.5 mmHg AV Mean Velocity 102.4 cm/s AV Mean Gradient 4.7 mmHg AV Velocity Time Integral 24.9 cm AI Peak Velocity 305.3 cm/s AI Peak Gradient 37.3 mmHg AI Pressure Half Time 423.0 ms LVOT Peak Velocity 122.0 cm/s LVOT Peak Gradient 6.0 mmHg LVOT Velocity Time Integral 23.2 cm MV Area PHT 4.3 cm??? Mitral E Point Velocity 89.8 cm/s Mitral A Point Velocity 98.8 cm/s Mitral E to A Ratio 0.9 MV Deceleration Time 178.2 ms MV E' Velocity 3.0 cm/s Mitral E to MV E' Ratio 30.3 FINDINGS Left Ventricle Mildly increased left ventricular wall thickness. Global left ventricular hypokinesis. Reduced global left ventricular systolic function. Left ventricular cavity size normal. Left ventricular ejection fraction is estimated at 30-35 %. Grade 1 diastolic dysfunction. Right Ventricle Normal right ventricular size and function. Right Atrium Normal right atrial size. Left Atrium Severely increased left atrial volume. Mildly increased left atrial area. Mitral Valve Structurally normal mitral valve. Mild mitral annular calcification. Mild-to- moderate mitral regurgitation. Aortic Valve Trileaflet aortic valve. Thickened aortic valve without stenosis. No aortic regurgitation. Tricuspid Valve Structurally normal tricuspid valve. Mild tricuspid regurgitation. Pulmonic Valve Structurally normal pulmonic valve. No pulmonic regurgitation. Pericardium No pericardial effusion. Aorta Normal size aortic root and proximal ascending aorta. CONCLUSIONS Mildly increased left ventricular wall thickness Left ventricular ejection fraction 30-35% Moderately dilated left atrium Mild to moderate mitral regurgitation Mild tricuspid regurgitation Previewed by: Dr. Guanakito Faust DO (Electronically Signed) Final Date: 13 January 2024 09:08
[2024-01-13] MEDS: carvediloL 3.125 MG TAB PO SCH (10:40)
--- NOTE | 2024-01-13 11:15 | P.PN ---
Subjective HISTORY OF PRESENT ILLNESS: Patient is status post cardiac catheterization with Dr. Oconnor revealing 80 to 90% mid RCA stenosis, left main coronary artery appears calcified but is free of significant stenosis, LAD shows a long segment of narrowing and it is extending into its midportion. Diagonal branch has 80 to 90% stenosis. Circumflex coron rachel artery is a nondominant vessel and a large caliber OM branch which is totally occluded. CT surgery consultation was recommended. Patient initially requesting to be transferred to [facility] for revascularization. However, internal medicine spoke with [facility] yesterday and declined to accept patient as a transfer. Patient and his spouse who is at the bedside are still considering CABG versus PCI to be performed here or possibly being discharged again driving themselves to [facility]. The patient currently denies any chest pain or pressure. He denies any shortness of breath. Vital signs are stable. PHYSICAL EXAM: VITAL SIGNS: Reviewed. GENERAL: Well-developed in no acute distress. NECK: Supple. No JVD or thyromegaly LUNGS: Respirations even and unlabored. Lungs essentially clear to auscultation bilaterally. HEART: Regular rate and rhythm. S1 and S2 heard. EXTREMITIES: Normal range of motion. No clubbing or cyanosis. Peripheral pulses intact. No lower extremity edema ASSESSMENT: Non-STEMI status post cardiac catheterization revealing multivessel coronary artery disease Acute heart failure with reduced EF, 30 to 35% Hypertensive emergency Hyperlipidemia, LDL 152.6 PLAN: Discontinue IV Lasix. Begin oral Lasix 40 mg daily Decrease carvedilol to 3.125 mg twice a day due to bradycardia Continue additional cardiac medications Possible CABG versus PCI to be performed at this facility. Additional possibility includes patient being discharged and driving to [facility] as [facility] declined transfer. Awaiting patient and spouse to make a decision Further recommendations pending patient course Nurse practitioner note has been reviewed by physician. Signing provider agrees with the documented findings, assessment, and plan of care documented by SWEDGER as a scribe. Objective - Vital Signs Vital signs: Vital Signs Temp 97.7 F 01/13/24 03:45 Pulse 68 01/13/24 08:00 Resp 18 01/13/24 08:00 BP 163/77 01/13/24 08:00 Pulse Ox 95 01/13/24 08:00 FiO2 Intake & Output 01/12/24 01/13/24 01/13/24 18:59 06:59 18:59 Intake Total 174.687 Output Total 900 400 Balance -725.313 -400 Weight 90.3 kg Intake: IV 125 Intake, IV Titration 49.687 Amount Heparin Sod,Pork in 0.45% 49.687 NaCl 25,000 unit In 0.45 % NaCl 1 250ml.bag @ 10. 498 UNITS/KG/HR 10 mls/hr IV .Q24H [facility] Rx#: [id number] Output: Urine 900 400 Other: Voiding Method Urinal Urinal Urinal # Voids 0 - Labs CBC & Chem 7: 01/13/24 06:25 01/13/24 06:25 Labs: Abnormal Lab Results - Last 24 Hours (Table) 01/13/24 01/13/24 01/13/24 Range/Units 03:15 06:25 06:25 Neutrophils # 8.0 H (1.3-7.7) k/uL BUN 25 H (9-20) mg/dL Glucose 102 H (74-99) mg/dL Ur Specific [place] 1.047 H (1.001-1.035) Urine Protein Trace H (Negative)
[2024-01-13] MEDS: DOCUSATE 100 MG CAP PO PRN (17:40)
[2024-01-14] MEDS: ISOSORBIDE MONONITRATE ER 30 MG TAB.ER.24H PO SCH (09:21)
[2024-01-14] MEDS: SPIRONOLACTONE 25 MG TAB PO SCH (09:21)
--- NOTE | 2024-01-14 10:27 | P.PN ---
Subjective HISTORY OF PRESENT ILLNESS: Patient is status post cardiac catheterization with Dr. Oconnor revealing 80 to 90% mid RCA stenosis, left main coronary artery appears calcified but is free of significant stenosis, LAD shows a long segment of narrowing and it is extending into its midportion. Diagonal branch has 80 to 90% stenosis. Circumflex coron rachel artery is a nondominant vessel and a large caliber OM branch which is totally occluded. CT surgery consultation was recommended. Patient initially requesting to be transferred to [facility] for revascularization. However, internal medicine spoke with [facility] yesterday and declined to accept patient as a transfer. Patient and his spouse who is at the bedside are still considering CABG versus PCI to be performed here or possibly being discharged again driving themselves to [facility]. The patient currently denies any chest pain or pressure. He denies any shortness of breath. Vital signs are stable. 01/14/2024 Patient examined this morning the bedside. Patient currently denies chest pain or pressure. He denies shortness of breath. Blood pressures remain elevated with a systolic between 244040. Patient and his family have decided not to pursue CABG at [facility]. They are also not interested in having CABG performed at this facility. They are requesting evaluation by Dr. Humphries for PCI. PHYSICAL EXAM: VITAL SIGNS: Reviewed. GENERAL: Well-developed in no acute distress. NECK: Supple. No JVD or thyromegaly LUNGS: Respirations even and unlabored. Lungs essentially clear to auscultation bilaterally. HEART: Regular rate and rhythm. S1 and S2 heard. EXTREMITIES: Normal range of motion. No clubbing or cyanosis. Peripheral pulses intact. No lower extremity edema ASSESSMENT: Non-STEMI status post cardiac catheterization revealing multivessel coronary artery disease Acute heart failure with reduced EF, 30 to 35%, improved Hypertensive emergency, improved Hyperlipidemia, LDL 152.6 PLAN: Patient and spouse currently refusing carvedilol as patient has had some bradycardia overnight which may be secondary to possible obstructive sleep apnea. Patient is not bradycardic during the day and has no signs or symptoms of dizziness or lightheadedness. Patient also refusing heparin subcu Add Plavix 75 mg daily as patient has decided not to proceed with CABG Add amlodipine 5 mg daily and Aldactone 25 mg daily Discontinue Nitropaste. Begin Imdur 30 mg daily Continue to monitor blood pressure Patient and his spouse are requesting Dr. Humphries to review films for PCI. This will be discussed with Dr. Humphries tomorrow. Further recommendations pending patient course Nurse practitioner note has been reviewed by physician. Signing provider agrees with the documented findings, assessment, and plan of care documented by MRP CONTROLLER as a scribe. Objective - Vital Signs Vital signs: Vital Signs Temp 98.0 F 01/14/24 05:24 Pulse 63 01/14/24 05:24 Resp 16 01/14/24 05:24 BP 156/78 01/14/24 05:24 Pulse Ox 94 L 01/14/24 05:24 FiO2 Intake & Output 01/13/24 01/14/24 01/14/24 18:59 06:59 18:59 Intake Total 118 Output Total 875 400 500 Balance -875 -400 -382 Weight 90.1 kg Intake: Oral 118 Output: Urine 875 400 500 Other: Voiding Method Urinal Urinal # Bowel Movements 1 - Labs CBC & Chem 7: 01/13/24 06:25 01/13/24 06:25 Labs: Microbiology - Last 24 Hours (Table) 01/12/24 21:24 Nasal Screen MRSA/MSSA - Final Nasal Swab Staphylococcus aureus,Not MRSA
[2024-01-14 10:47] LABS: Hepatitis A Antibody IgM Nonreactive (Nonreactive); Hepatitis B Core IgM Nonreactive (Nonreactive); Hepatitis B Surface Antigen Nonreactive (Nonreactive); Hepatitis C IgG Antibody Nonreactive (Nonreactive)
[2024-01-14] MEDS: amLODIPine 5 MG TAB PO SCH (11:52)
[2024-01-15 08:06] VITALS: RESP 16; TEMP 97.6
[2024-01-15] MEDS: CLOPIDOGREL 75 MG TAB PO SCH (08:21)
--- NOTE | 2024-01-15 11:33 | P.PN ---
Progress Note - Text 68-year-old male patient who presented to the hospital with extremely high blood pressure greater than 200/110 mmHg, anginal-like symptoms, rising troponins, Q waves in V3 and V4 as well as in the inferior leads, non-Q wave myocardial infarction I controlled his blood pressure to the 150 mmHg range with valsartan 160 twice daily, spironolactone 25 mg daily, carvedilol 3.125 mg twice daily and treated him with IV heparin, antiplatelet therapy and high-dose statins His 2D echo showed LV dysfunction 30-35% consistent with the Q waves on the twelve-lead EKG. 7 out of 12 leads on the twelve-lead EKG showed Q waves and his echo LV function is consistent with his EKG. Left heart cath revealed LVEDP of 18 to 20 mmHg without any gradient across the aortic valve It showed an 80 to 90% stenosis in the mid RCA, 80 to 90% stenosis of the diagonal vessel, a large caliber OM branch that was totally occluded, the LAD which shows a long segment of narrowing extending into the midportion. Dr. Salter and Dr. Faust recommended coronary artery bypass grafting for multivessel CAD. He was seen by the CT surgery team and assessed for coronary bypass grafting. Initially the family members wanted to transfer to the rest [facility] for revascularization surgery Subsequently they wanted opinion on multivessel coronary stenting and will be seen by Dr. Humphries today The patient and the family members especially the is questioning medical treatment. For example she is extremely worried about the side effects of valsartan and stated that all these medications are being given to her and that could harm him and she is worried about the harm these medications able to cause. She specifically mentioned valsartan as a harmful medication His blood pressures have ranged from 150 to 170 mmHg systolic and the diastolics have been in the 80s for the last 2 to 3 days His heart rates have ranged from 105 upon admission and then in the 60s and 70s. The lowest heart rate recorded 53 beats a minute. At that time I had given him carvedilol 6.25 mg twice daily My medical opinion Keep blood pressure consistently less than 130/80 mmHg Keep heart rates in the 50s-60s during the daytime Do not react to nighttime bradycardia unless significant bradycardia less than 40 beats a minute If so, sleep apnea assessment is indicated Valsartan 320 mg in the evening Carvedilol 3.125 mg twice daily and increase to 6.25 mg twice daily Spironolactone, increased to 50 mg p.o. daily as tolerated Keep blood pressure consistently less than 130/80 mmHg Heart rate goal in the 50s and 60s Atorvastatin 80 mg p.o. daily Avoid amlodipine since he has a cardiomyopathy Continue dual antiplatelet therapy for now May continue Imdur 30 mg daily Discuss further revascularization strategy with Dr. Humphries today Further patient management per internal medicine team from now on
[2024-01-15 11:47] VITALS: BP 153/77; PULSE 61
[2024-01-15] MEDS: amLODIPine 5 MG TAB PO SCH (14:14)
[2024-01-15] MEDS ORDERED: ATORVASTATIN 80 MG TAB PO SCH (21:00)
--- NOTE | 2024-01-16 08:19 | P.PN ---
Progress Note - Text Progress Note Date: 01/16/24 I was requested to speak to the patient and his family after an angiogram was performed by Dr. Oconnor on January 12, 2024 and the angiogram revealed severe two- vessel coronary artery disease involving the RCA and LAD and the patient was referred to undergo coronary artery bypass grafting (CABG) but apparently the patient and his did not want to go with open heart surgery and they would like percutaneous coronary intervention (PCI) to be performed by myself. Yesterday, on January 15, 2024, I came personally and I spoke with the patient in the presence of his and his daughters as well as in the presence of the nurse who was taking care of the patient, Diana. I informed the patient and his family that the options available for coronary revascularization include CABG as well as PCI of course in addition to maximize medical treatment. I informed them as well that in my opinion after reviewing the angiogram multiple times, the best option will be coronary artery bypass grafting giving the anatomy, even though that the LAD was not well-opacified during the angiogram but appears to have long tubular lesion. The second best option would be PCI. I also informed the patient and his family and discussed with him the importance of taking the medications including antiplatelet as well as high intensity statin as well as anti-ischemic medication of course in addition to coronary revascularization and also the importance of taking the medications after percutaneous coronary revascularization. I also told him to think about the 2 options of coronary revascularization for the next few hours and get back to me emphasizing that CABG would be a better option than PCI based on the current angiogram we have. And if we need to move forward toward PCI I need to perform another angiogram to have more details about the LAD lesion and the patient and his family are in agreement. Apparently transferring the patient to [facility] was discussed with them by the primary cardiac team Few hours after and in the later afternoon I received a call that the patient will be discharged home on maximized medical treatment and they will like to go with coronary revascularization percutaneously. With that being said I am planning to pursue coronary angiogram and possibly PCI based on the angiogram and more selective pictures of the LAD to be performed in the next 24 to 48 hours.
[2024-01-16] MEDS ORDERED: amLODIPine 10 MG TAB PO SCH (09:00)
== END 2024-01-15 16:37 | disposition home or self-care (01) | DRG 280 ==
LOC: EC 20:44 → 3SCARD 23:40
PROVIDERS: ADMIT Hospitalist; ATTEND Hospitalist
PROC: B2111ZZ Fluoroscopy of Multiple Coronary Arteries using Low Osmolar Contrast (ICD-10-PCS; principal; 2024-01-12 11:15)
PROC: 4A023N7 Measurement of Cardiac Sampling and Pressure, Left Heart, Percutaneous Approach (ICD-10-PCS; principal; 2024-01-12 11:15)
DX: I21.4 Non-ST elevation (NSTEMI) myocardial infarction (principal); I50.21 Acute systolic (congestive) heart failure; I16.1 Hypertensive emergency; I42.9 Cardiomyopathy, unspecified; E78.5 Hyperlipidemia, unspecified; I11.0 Hypertensive heart disease with heart failure; R73.9 Hyperglycemia, unspecified; I25.10 Atherosclerotic heart disease of native coronary artery without angina pectoris; J45.909 Unspecified asthma, uncomplicated; Z79.899 Other long term (current) drug therapy; R74.01 Elevation of levels of liver transaminase levels; Z28.310 Unvaccinated for COVID-19; Z28.21 Immunization not carried out because of patient refusal
CPT/HCPCS: 36415; 71046; 71275; 80048; 80053; 80061; 80074; 81003; 83036; 83690; 83735; 83880; 84443; 84484; 85025; 85379; 85610; 85730; 87070; 93005; 93306; 93458; 93880; 93922; 93970; 99291

== ENCOUNTER 2024-01-18 08:41 | Inpatient (IN) | payer BC, MEDICARE ==
[2024-01-17 09:30] VITALS: BMI 28.8
[~2024-01-18 08:41] MED LIST: ALPRAZolam 0.25 MG TAB PO PRN; ALPRAZolam 0.5 MG TAB PO PRN; NITROGLYCERIN SL TABS 0.4 MG TAB SUBLINGUAL PRN
[2024-01-18] MEDS: IV FLUID CONTINUATION 1,000 ML IV ONE (09:00)
[2024-01-18] MEDS ORDERED: LIDOCAINE 1% INJ 10MG/ML (20 ML MDV) ONE (09:05)
[2024-01-18] MEDS: SODIUM CHLORIDE 0.9% 1,000 ML in EMPTY BAG 1 BAG IV SCH ×2 (09:10→17:39)
[2024-01-18] MEDS ORDERED: niCARdipine 25 MG/10 ML VIAL ONE (09:10)
[2024-01-18] MEDS ORDERED: fentaNYL (PF) 50 MCG/ML 2 ML AMP ONE ×2 (09:19→11:36)
[2024-01-18] MEDS ORDERED: HEPARIN SODIUM 1,000 UN/ML (10ML VL) ONE (09:19)
[2024-01-18] MEDS: fentaNYL (PF) 50 MCG/ML 2 ML AMP IVP ONE ×2 (09:21→11:38)
[2024-01-18] MEDS: MIDAZOLAM 2 MG/2 ML VIAL IVP ONE ×2 (09:21→09:48)
--- NOTE | 2024-01-18 09:28 | P.PN ---
Progress Note - Text Progress Note Date: 01/18/24 The patient presented today for a heart catheterization and possible PCI. Before the procedure was started, I had a discussion with the patient's and his family. I am going to pursue with further evaluation by doing a selective angiogram to evaluate the LAD and have a good opacification of the LAD to assess if the LAD is amenable for PCI or not. If the LAD is not amenable for PCI I would abort the procedure. If the LAD is amenable for PCI I would consider proceeding with PCI with adjunctive use of Impella. I informed the patient and his that if we pursue with PCI and stenting the patient need to be on dual antiplatelet therapy and he will be compliant with dual antiplatelet therapy and the family including the agreed that he will be taking his medications including dual antiplatelet therapy. They also asked if the patient can be discharged home same day and they stated if we do PCI the patient will be staying overnight for possible discharge tomorrow
[2024-01-18] MEDS: LIDOCAINE 1% INJ 10MG/ML (20 ML MDV) SQ ONE (09:33)
[2024-01-18] MEDS ORDERED: TICAGRELOR 90 MG TAB ONE (09:43)
[2024-01-18] MEDS: TICAGRELOR 90 MG TAB PO ONE (09:46)
[2024-01-18] MEDS: HEPARIN SODIUM 1,000 UN/ML (10ML VL) IVP ONE (09:55)
[2024-01-18] MEDS: NITROGLYCERIN 1000MCG/10ML SYRINGE INTRACORON ONE (11:22)
[2024-01-18] MEDS: niCARdipine Syringe (1,000 mcg/10 mL) INTRACORON ONE (11:23)
[2024-01-18] MEDS: IOPAMIDOL-370 200ML BTL INJ ONE (11:38)
[2024-01-18] MEDS: HEPARIN SODIUM,PORCINE (1 ML) 2,500 UNIT in SODIUM CHLORIDE 0.9% 250 ML IRRIGATION PRN (11:39)
[2024-01-18] MEDS: HEPARIN SODIUM,PORCINE 10,000 UNIT in SODIUM CHLORIDE 0.9% 1,000 ML IRRIGATION PRN (11:39)
[2024-01-18] MEDS ORDERED: NITROGLYCERIN SL TABS 0.4 MG TAB SUBLINGUAL PRN ×2 (11:51→11:55)
[2024-01-18] MEDS ORDERED: MAG HYDROX/AL HYDROX/SIMETH 30 ML CUP PO PRN (11:55)
[2024-01-18] MEDS ORDERED: ATROPINE SULFATE 0.1 MG/ML 10ML SYRINGE IV PRN (11:55)
[2024-01-18] MEDS ORDERED: RX INFO: IV CONTRAST WAS GIVEN 1 EACH MISC MISCELLANE PRN (11:55)
[2024-01-18] MEDS ORDERED: ZOLPIDEM 5 MG TAB PO PRN (11:55)
[2024-01-18 12:02] LABS: Glucose,Whole Blood 108 mg/dL (70-110)
--- NOTE | 2024-01-18 12:12 | P.PCN ---
Date of Procedure: 01/18/24 Operative Findings: PERCUTANEOUS CORONARY INTERVENTION Performing physician Danilo Humphries M.D. Procedure Performed: 1. Successful stenting of the mid RCA and proximal RCA using 4.0 x 18 and 4.5 x 18 mm Xience drug-eluting stent with an excellent angiographic results. 2. Successful stending of the mid LAD using 3.0 x 28 mm Xience drug-eluting stent with an excellent angiographic result. 3. Balloon angioplasty of the diagonal branch of the left anterior descending artery 4. Selective right and left coronary angiogram and left heart catheterization 5. Adjunctive use of intravascular imaging IVUS 6. Adjunctive use of Impella CP in the left ventricle 7. Selective right common femoral artery angiogram and ultrasound-guided access of the right common femoral artery Indication: This is a 68-year-old gentleman who was admitted to the hospital few days ago with acute non-ST elevation myocardial infarction and underwent heart catheterization which revealed severe triple-vessel CAD. He decided not to go with open heart surgery and he would like to go with PCI. Please see previous medical records for more details Approach: Right common femoral artery Complications: None Level of Sedation: Moderate with a sedation length of 127 minutes Procedure Discussion: After obtaining informed consent the patient was brought to the cardiac Accountancy Professor. The right common femoral artery was cannulated using micropuncture technique under ultrasound guidance the micropuncture wire passed easily then I did advance the micropuncture dilator over the wire and pulled the wired out and I did selective right common femoral artery angiogram to assure that the location and position of the sheath will be good. Subsequently I did advance the micropuncture sheath with a dilator over the wire and I did exchange my 11 cm micropuncture sheath into a 6 [place] sheath using 035 wire. At that point I did selective left coronary angiogram which revealed the LAD to be critically diseased and the lesion to be amenable for PCI and at that point I decided to pursue his PCI. With that being said I decided to place an Impella CP in the left ventricle. Subsequently I did preclose using. Close at 10 and 2:00. After that I placed an 8 [place] sheath in the right common femoral artery. Then I did exchange my 8 [place]ian sheath to 14 [place]ian sheath using stiff 035 wire and the 14 [place] sheath was advanced under fluoroscopy guidance and went smoothly. At that point anticoagulation was initiated using heparin with continuous ACT monitoring. After that I did across the aortic valve using a 3 5 wire with a pigtail catheter. After that I did pull the wire out and advanced a 018 wire which was Impella wire and pulled the pigtail catheter out. Subsequently the Impella was advanced to the LV and turned on. At that point I decided to proceed with PCI of the RCA first. I did engage the RCA using an AL 0.757 [place]serratian system. I did wired using a run-through wire. Intravascular ultrasound was performed and showed a calcified lesion with RCA distally about 4 mm and proximally 4.5 mm. I predilated using 3.5 mm balloon before I deployed in the mid RCA 4.0 x 18 mm stent and proximally 4.5 x 18 mm stent. Both stents were dilated using 4.5 mm balloon before I did intravascular ultrasound again IVUS and showed that the stent was well opposed and well-expanded. Subsequently I did engage the left main coronary artery using an EBU 3.56 [place]erratian guiding catheter. I did wired the LAD using a whisper wire with the backup support of Corsair catheter. After that I did wired the diagonal branch of the LAD as well for possible doing PCI as well as for anchoring support. Intravascular ultrasound was performed and showed a diameter of the LAD between 2.5 to 3 mm noncalcified lesions. Predilatation was performed using 2 mm noncompliant balloon before I deployed a 3.0 x 28 mm stent where the stent was positioned under fluoroscopic guidance and deployed under fluoroscopy guidance. The stent was postdilated using 3 mm NC balloon with final angiogram showing excellent angiographic results. I did predilatation of the diagonal branch using a 2.5 mm balloon but attempting advancing 2.5 x 18 mm stent was unsuccessful in spite of using double wire with michael wire as well as guide liner. There was ANJELICA-3 flow in the diagonal branch and there was nonflow limiting dissection identified. At that point and giving the amount of dye was used I decided to stop it. Subsequently I was able to pull the Impella out and deployed 2 Perclose with excellent hemostasis. The patient did have 1+ pedal pulse and good right femoral pulse beneath the stick point. The procedure overall went extremely well and no complications reported Postprocedure Management: 1. Dual antiplatelet therapy using aspirin and Brilinta for at least 12 months 2. Aggressive cholesterol control 3. Risk factors modification
[2024-01-18] MEDS: hydrALAZINE HCL 20 MG/ML 1 ML VIAL IVP PRN (14:01)
[2024-01-18] MEDS: ATORVASTATIN 80 MG TAB PO STA (17:35)
[2024-01-18] MEDS: ASPIRIN 325 MG TAB PO STA (17:35)
[2024-01-18] MEDS: carvediloL 3.125 MG TAB PO SCH (17:40)
[2024-01-18] MEDS: TICAGRELOR 90 MG TAB PO SCH (20:02)
[2024-01-18] MEDS: ATORVASTATIN 80 MG TAB PO SCH (20:02)
[2024-01-18] MEDS: VALSARTAN 160 MG TAB PO SCH (20:02)
[2024-01-19 02:51] VITALS: TEMP 98.7
[2024-01-19 07:51] LABS: African American GFR (CKD) >90 (>60 ml/min/1.73 sqM); Non-African American GFR(CKD) 88 (>60 ml/min/1.73 sqM)
[2024-01-19] MEDS: ASPIRIN 81 MG PO SCH (08:05)
[2024-01-19] MEDS: SPIRONOLACTONE 25 MG TAB PO SCH (08:06)
[2024-01-19 08:11] VITALS: RESP 18
[2024-01-19] MEDS ORDERED: BEET ROOT PO SCH (09:00)
[2024-01-19] MEDS: FUROSEMIDE 40 MG TAB PO SCH (09:01)
[2024-01-19] MEDS: ISOSORBIDE MONONITRATE ER 30 MG TAB.ER.24H PO SCH (09:01)
[2024-01-19 09:09] VITALS: BP 132/69; PULSE 66
--- NOTE | 2024-01-19 12:41 | P.DS ---
Providers Date of admission: 01/18/24 08:41 Attending physician: Danilo Humphries Consults: 01/18/24 11:56 Consult Physician Routine Consulting Provider: [facility] Consult Reason/Comments: Post Interventional Patient Do you want consulting provider notified?: Already Contacted Primary care physician: [facility] Course: the patient is a pleasant 68-year-old gentleman who underwent yesterday successful PCI of the RCA and LAD with a good angiographic results from right groin approach. The patient was seen and evaluated this morning. He is asymptomatic and hemodynamically stable. The right groin is soft and nontender was no bruises. He does have diminished pedal pulse in the right dorsalis pedis which has been the same as before. The right foot is warm. The patient is going to be discharged home on dual antiplatelet therapy. The importance of taking the medications including dual antiplatelet therapy has been addressed with the patient in details. The consequences of not taking the medication an interrupted taking the medication including a heart attack and was discussed with the patient as well in details. The patient will be seen in the office in a week from now Patient Condition at Discharge: Good Plan - Discharge Summary Discharge Rx Participant: No New Discharge Prescriptions: New Ticagrelor [Brilinta] 90 mg PO DAILY #90 tablet Continue carvediloL [Coreg] 3.125 mg PO BID-W/MEALS #60 tab Nitroglycerin Sl Tabs [Nitrostat] 0.4 mg SUBLINGUAL Q5M PRN #30 tab PRN Reason: Chest Pain Spironolactone [Aldactone] 25 mg PO QAM Furosemide [Lasix] 40 mg PO QAM Aspirin 81 mg PO QAM Valsartan [Diovan] 160 mg PO BID #60 tab Atorvastatin [Lipitor] 80 mg PO HS #30 tab Ibuprofen (Unknown Dose) 1 dose PO Q8H PRN PRN Reason: Pain Beet Root(Unknown Dose) 1 dose PO QAM Discontinued Isosorbide Mononitrate ER [Imdur] 30 mg PO QAM Clopidogrel [Plavix] 75 mg PO QAM Discharge Medication List Atorvastatin [Lipitor] 80 mg PO HS #30 tab 01/15/24 [Rx] Nitroglycerin Sl Tabs [Nitrostat] 0.4 mg SUBLINGUAL Q5M PRN #30 tab 01/15/24 [Rx] Valsartan [Diovan] 160 mg PO BID #60 tab 07/15/24 [Rx] carvediloL [Coreg] 3.125 mg PO BID-W/MEALS #60 tab 01/15/24 [Rx] Aspirin 81 mg PO QAM 01/17/24 [History] Beet Root(Unknown Dose) 1 dose PO QAM 01/17/24 [History] Furosemide [Lasix] 40 mg PO QAM 01/17/24 [History] Ibuprofen (Unknown Dose) 1 dose PO Q8H PRN 01/17/24 [History] Spironolactone [Aldactone] 25 mg PO QAM 01/17/24 [History] Ticagrelor [Brilinta] 90 mg PO DAILY #90 tablet 01/19/24 [Rx] Follow up Appointment(s)/Referral(s): Danilo Humphries MD [STAFF PHYSICIAN] - 1 Week (Office will call with appointment date and time.) Patient Instructions/Handouts: *Surgery [facility] - After Heart Catheterization - Poultry Slaught[employer] Instructions Discharge Disposition: HOME SELF-CARE
--- NOTE | 2024-01-22 11:28 | CDI ---
Documentation Clarification Form Date: 01/22/24 From: Candida Ramon Admit Date: 01/18/2024 08:41:00 AM Patient Name: Abel Gambino Visit Number: [id number] Discharge Date: 01/19/2024 09:21:00 AM ATTENTION: The Clinical Documentation Specialists (CDI) and [facility] Coding Staff appreciate your assistance in clarifying documentation. Please respond to the clarification below the line at the bottom and electronically sign. The CDI & [facility] Coding staff will review the response and follow-up if needed. Please note: Queries are made part of the Legal Health Record. If you have any questions, please contact the author of this message via ITS. Doctor Danilo Humphries, Your patient has the documented diagnosis of unspecified CHF per your scanned H&P. Additional information regarding the type and acuity of CHF is requested. History/Risk Factors: CAD with calcified coronary lesion, Hypertensive heart disease, Type 2 DE, asthma Clinical Indicators: Presents for percutaneous coronary intervention. VS/Pulse OX: T 98.0, P 65, R 18/16, BP 186/105, O2 sat 98/97 RA BNP: none 01/11/24 Echocardiogram Results: Reduced global left ventricular systolic function. Left ventricular cavity size normal. Left ventricular EF is estimated at 30-35%. Grade 1 diastolic dysfunction. Chest X Ray: none Treatment: Lasix 40 mg once a day In your professional opinion, can you please clarify the type and acuity of CHF if known? [ ] Chronic Systolic Heart Failure (reduced EF) [ ] Chronic Diastolic Heart Failure (preserved EF) [ ] Chronic Systolic & Diastolic Heart Failure [ ] Other, please specify [ ] Unable to determine MTDD
== END 2024-01-19 09:21 | disposition home or self-care (01) | DRG 215 ==
LOC: 2ORMAIN 08:41 → 2SICU 11:47
PROVIDERS: ADMIT Internal Medicine Interventional Cardiology; ATTEND Internal Medicine Interventional Cardiology
PROC: 5A0221D Assistance with Cardiac Output using Impeller Pump, Continuous (ICD-10-PCS; principal; 2024-01-18 10:30)
PROC: 027136Z Dilation of Coronary Artery, Two Arteries with Three Drug-eluting Intraluminal Devices, Percutaneous Approach (ICD-10-PCS; principal; 2024-01-18 10:30)
PROC: B41F1ZZ Fluoroscopy of Right Lower Extremity Arteries using Low Osmolar Contrast (ICD-10-PCS; principal; 2024-01-18 10:30)
PROC: 02703ZZ Dilation of Coronary Artery, One Artery, Percutaneous Approach (ICD-10-PCS; principal; 2024-01-18 10:30)
PROC: 4A023N7 Measurement of Cardiac Sampling and Pressure, Left Heart, Percutaneous Approach (ICD-10-PCS; principal; 2024-01-18 10:30)
PROC: B241ZZ3 Ultrasonography of Multiple Coronary Arteries, Intravascular (ICD-10-PCS; principal; 2024-01-18 10:30)
PROC: B2111ZZ Fluoroscopy of Multiple Coronary Arteries using Low Osmolar Contrast (ICD-10-PCS; principal; 2024-01-18 10:30)
PROC: 02HW3RZ Insertion of Short-term External Heart Assist System into Thoracic Aorta, Descending, Percutaneous Approach (ICD-10-PCS; principal; 2024-01-18 10:30)
DX: I25.10 Atherosclerotic heart disease of native coronary artery without angina pectoris (principal); I21.4 Non-ST elevation (NSTEMI) myocardial infarction; I11.0 Hypertensive heart disease with heart failure; J45.909 Unspecified asthma, uncomplicated; Z28.310 Unvaccinated for COVID-19; I25.84 Coronary atherosclerosis due to calcified coronary lesion; Z79.82 Long term (current) use of aspirin; Z79.02 Long term (current) use of antithrombotics/antiplatelets; Z79.899 Other long term (current) drug therapy
CPT/HCPCS: 33990; 82565; 92921; 92978; 92979